=== PATIENT | male | born 1965 | race Caucasian/White ===

== ENCOUNTER 2016-03-28 00:04 | Emergency (ER) | payer OTHER ==
--- NOTE | 2016-03-28 01:01 | ED ---
Lower Extremity Injury HPI - General Chief Complaint: Extremity Injury, Lower Stated Complaint: R Ankle Swelling Time Seen by Provider: 03/28/16 00:31 Source: patient, RN notes reviewed Mode of arrival: ambulatory Limitations: no limitations - History of Present Illness Initial Comments: Patient is a 50-year-old male with chief complaint of right ankle swelling for 1 day. Patient reports that he has history of ankle fracture proximal he 10 years ago and whenever he injured his ankle after that it becomes extremely severe. Patient reports that he has taken Wesley at home today however has not helped with the pain. Patient reports only Dilaudid helps with his pain. Patient reports no specific injury to cause the swelling however he may have twisted it at work yesterday. Patient denies any other related symptoms including peripheral paresthesias. Patient reports the pain seemed to get worse after he decided to soak his foot in hot bath. - Related Data Home Medications Medication Instructions Recorded Confirmed Aspirin EC [Ecotrin] 325 mg PO DAILY 06/01/15 03/28/16 Cholecalciferol [Vitamin D3] 1,000 unit PO DAILY 06/01/15 03/28/16 Multivitamins, Thera [Multivitamin] 1 tab PO DAILY 06/01/15 03/28/16 Previous Rx's Medication Instructions Recorded Aspirin EC [Ecotrin] 325 mg PO DAILY #30 tablet. 06/03/15 Atorvastatin [Lipitor] 80 mg PO HS #30 tab 06/03/15 Fenofibrate [Lofibra] 160 mg PO DAILY #30 tab 06/03/15 Lisinopril [Zestril] 10 mg PO DAILY #30 tab 06/03/15 Metoprolol Tartrate [Lopressor] 25 mg PO BID #60 tab 06/03/15 Nicotine 21Mg/24Hr Patch [Habitrol] 1 patch TRANSDERM DAILY #30 patch 06/03/15 Nitroglycerin Sl Tabs [Nitrostat] 0.4 mg SUBLINGUAL Q5M PRN #25 tab 06/03/15 Prasugrel [Effient] 10 mg PO DAILY #30 tab 06/03/15 amLODIPine [Norvasc] 5 mg PO DAILY #30 tab 06/03/15 HYDROcodone/APAP 5-325MG [[place] 1 tab PO Q6HR PRN #12 tab 03/28/16 5-325] Allergies Allergy/AdvReac Type Severity Reaction Status Date / Time morphine Allergy Nausea & Verified 03/28/16 00:25 Vomiting Review of Systems ROS Statement: Those systems with pertinent positive or pertinent negative responses have been documented in the HPI. ROS Other: All systems not noted in ROS Statement are negative. Past Medical History Past Medical History: Hyperlipidemia History of Any Multi-Drug Resistant Organisms: None Reported Past Surgical History: Orthopedic Surgery Past Psychological History: No Psychological Hx Reported Smoking Status: Current every day smoker Past Alcohol Use History: None Reported Past Drug Use History: None Reported General Exam - General Exam Comments Initial Comments: is a well-appearing 48-year-old male. Limitations: no limitations General appearance: alert, in no apparent distress Head exam: Present: atraumatic, normocephalic, normal inspection Eye exam: Present: normal appearance, PERRL, EOMI. Absent: scleral icterus, conjunctival injection, periorbital swelling ENT exam: Present: normal exam, mucous membranes moist Neck exam: Present: normal inspection. Absent: tenderness, meningismus, lymphadenopathy Respiratory exam: Present: normal lung sounds bilaterally. Absent: respiratory distress, wheezes, rales, rhonchi, stridor Cardiovascular Exam: Present: regular rate, normal rhythm, normal heart sounds. Absent: systolic murmur, diastolic murmur, rubs, gallop, clicks GI/Abdominal exam: Present: soft, normal bowel sounds. Absent: distended, tenderness, guarding, rebound, rigid Extremities exam: Present: normal inspection, full ROM, normal capillary refill. Absent: tenderness, pedal edema, joint swelling, calf tenderness Right Ankle exam: Present: tenderness (No significant tenderness over the entire ankle.), swelling (Diffuse swelling. There is evidence of more severe swelling over the lateral malleolus.). Absent: normal inspection, full ROM Back exam: Present: normal inspection Neurological exam: Present: alert, oriented X3, CN II-XII intact Psychiatric exam: Present: normal affect, normal mood Skin exam: Present: warm, dry, intact, normal color. Absent: rash Course Vital Signs 03/28/16 03/28/16 03/28/16 00:21 02:09 04:11 Temperature 99 F 97.5 F L 98.7 F Pulse Rate 87 78 88 Respiratory 20 18 18 Rate Blood Pressure 148/65 108/64 144/85 O2 Sat by Pulse 98 98 97 Oximetry Medical Decision Making - Medical Decision Making Patient is a 50 year old male with right ankle swelling for 2 days. 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 Patient can not remember specific injury. Patient reports pain was worse after soaking it in warm bath. Patient has significant swelling Xray shows no fracture. PAtients ankle is not warm or erythematous. Patient will be given ankle shannon wrap and stirrup splint. Patient given script for crutches. Return parameters discussed. Follow up with PCP or ortho. Patent understands treatment plan and will comply. - Radiology Data Radiology results: report reviewed ankle xray is negative for any acute fracture. Evidence of significant swelling. Disposition Clinical Impression: Right ankle sprain Disposition: HOME SELF-CARE Condition: Good Instructions: Ankle Sprain (ED) Additional Instructions: instructed to follow-up with orthopedic physician. Return to the EC if any alarming signs symptoms occur. Rest, ice, and elevate extremity. Prescriptions: HYDROcodone/APAP 5-325MG [[place] 5-325] 1 tab PO Q6HR PRN #12 tab PRN Reason: Pain Referrals: López Clayton MD [Primary Care Provider] - 1-2 days Roberto Nance MD [STAFF PHYSICIAN] - 1-2 days Time of Disposition: 03:48
[2016-03-28] MEDS ORDERED: HYDROmorphone 1 MG/ML 1 ML SYRINGE IM STA (01:53)
[2016-03-28] MEDS ORDERED: KETOROLAC 30 MG/ML 1 ML VIAL IM STA (01:53)
[2016-03-28 02:11] VITALS: RESP 18
--- NOTE | 2016-03-28 03:51 | XR ---
EXAMINATION TYPE: XR foot limited RT DATE OF EXAM: 03/28/2016 1:35 AM CLINICAL HISTORY: History of pain, fracture of right foot and ankle 15 years ago. TECHNIQUE: 2 radiographs of right foot were obtained.. COMPARISON: Right ankle 03/28/2016. FINDINGS: There is no acute fracture/dislocation evident. Mild to moderate degenerative changes are present in the right foot especially involving right first metatarsophalangeal joint with cystic dege nerative changes in the head of the right first metatarsal bone.. Slightly prominent plantar calcanea l spur is noted. Mild soft tissue swelling. IMPRESSION: There is no acute fracture or dislocation. Degenerative changes. Soft tissue swelling. ICD 10 NO FRACTURE, INITIAL EVALUATION
--- NOTE | 2016-03-28 03:55 | XR ---
EXAMINATION TYPE: XR ankle complete RT DATE OF EXAM: 03/28/2016 1:35 AM COMPARISON: Right foot 03/28/2016 HISTORY: Pain TECHNIQUE: Frontal, lateral and oblique images of the right ankle are obtained. COMPARISON: None. FINDINGS: There is evidence of small bone densities in the inferior aspect of lateral and medial malleoli and a re most likely related to old fractures. No definite acute fracture or dislocation is noted in the ri ght ankle. Soft tissue swelling is noted. Small plantar calcaneal spur is noted. There is small lucency in the articular surface of distal right tibia and possibility of small old fr acture changes cannot be excluded. Underlying small avascular necrosis changes of articular surface o f distal right tibia cannot be excluded. IMPRESSION: There is no acute fracture or dislocation seen. Old fractures in the medial and lateral malleoli. Soft tissue swelling. Old fracture changes in the articular surface of distal right tibia with possible small area of avasc ular necrosis.
[2016-03-28 04:12] VITALS: BP 144/85; PULSE 88; TEMP 98.7
== END 2016-03-28 04:12 | disposition home or self-care (01) ==
LOC: EC 00:04
DX: S93.401A Sprain of unspecified ligament of right ankle, initial encounter (principal); X58.XXXA Exposure to other specified factors, initial encounter; Z79.82 Long term (current) use of aspirin; E78.5 Hyperlipidemia, unspecified; F17.200 Nicotine dependence, unspecified, uncomplicated; Z79.899 Other long term (current) drug therapy; Z88.5 Allergy status to narcotic agent; Z87.81 Personal history of (healed) traumatic fracture
CPT/HCPCS: 73610; 73620; 99283; 96372 ×2; J1885; J1170

== ENCOUNTER 2019-02-13 13:52 | Emergency (ER) | payer BC ==
[2019-02-13 14:09] VITALS: BP 155/77; PULSE 70; RESP 18; TEMP 98
[2019-02-13] MEDS ORDERED: CEPHALEXIN 500MG STARTER PACK 4 CAP BTL PO STA (14:16)
--- NOTE | 2019-02-13 14:17 | ED ---
Skin/Abscess/FB HPI - General Chief complaint: Skin/Abscess/Foreign Body Stated complaint: MRSA Time Seen by Provider: 02/13/19 14:10 Source: patient Mode of arrival: ambulatory Limitations: no limitations - History of Present Illness Initial comments: 53-year-old male with no known history of MRSA presents today for chief complaint of 4 lesions one on the posterior right sided neck one on the chin one on the anterior right aspect of knee one on the anterior aspect of the left jessica. Patient states that he has had these lesions shannon be bigger more red. He was told without testing by his primary care provider that this was MRSA. Patient denies any known history. Patient states that he has been on antibiotics for 10 days, bactrim. He was told once he is antibiotics for now he will not be a little bit more dilated come to the emergency department for refill. Patient states if significantly improved he states he does not come to get worse and presents to the ER for evaluation. Patient denies any fever or flulike symptoms, denies any increasing pain, redness or swelling. Upon arrival patient appears well,nontoxic and is afebrile. - Related Data Home Medications Medication Instructions Recorded Confirmed Aspirin EC [Ecotrin] 325 mg PO DAILY 06/01/15 03/28/16 Cholecalciferol [Vitamin D3 (25 1,000 unit PO DAILY 06/01/15 03/28/16 Mcg = 1000 Iu)] Multivitamins, Thera [Multivitamin 1 tab PO DAILY 06/01/15 03/28/16 (formulary)] Previous Rx's Medication Instructions Recorded Aspirin EC [Ecotrin] 325 mg PO DAILY #30 06/03/15 Atorvastatin [Lipitor] 80 mg PO HS #30 tab 06/03/15 Fenofibrate [Lofibra] 160 mg PO DAILY #30 tab 06/03/15 Lisinopril [Zestril] 10 mg PO DAILY #30 tab 06/03/15 Metoprolol Tartrate [Lopressor] 25 mg PO BID #60 tab 06/03/15 Nicotine 21Mg/24Hr Patch [Habitrol] 1 patch TRANSDERM DAILY #30 patch 06/03/15 Nitroglycerin Sl Tabs [Nitrostat] 0.4 mg SUBLINGUAL Q5M PRN #25 tab 06/03/15 Prasugrel [Effient] 10 mg PO DAILY #30 tab 06/03/15 amLODIPine [Norvasc] 5 mg PO DAILY #30 tab 06/03/15 HYDROcodone/APAP 5-325MG [[place] 1 tab PO Q6HR PRN #12 tab 03/28/16 5-325] Clindamycin HCl [Cleocin] 300 mg PO Q8H 7 Days #21 cap 02/13/19 Allergies Allergy/AdvReac Type Severity Reaction Status Date / Time morphine Allergy Nausea & Verified 03/28/16 00:25 Vomiting Review of Systems ROS Statement: Those systems with pertinent positive or pertinent negative responses have been documented in the HPI. ROS Other: All systems not noted in ROS Statement are negative. Past Medical History Past Medical History: Hyperlipidemia History of Any Multi-Drug Resistant Organisms: MRSA Date of last positivie culture/infection: 2018 MDRO Source:: Arms, legs, and head Past Surgical History: Orthopedic Surgery Past Psychological History: No Psychological Hx Reported Smoking Status: Current every day smoker Past Alcohol Use History: Occasional Past Drug Use History: Marijuana General Exam - General Exam Comments Initial Comments: General: The patient is awake and alert, in no distress, and does not appear acutely ill. Eye: +3 mm pupils are equal, round and reactive to light, extra-ocular movements are intact. No nystagmus. There is normal conjunctiva bilaterally. No signs of icterus. Ears, nose, mouth and throat: There are moist mucous membranes and no oral lesions. Neck: The neck is supple, there is no tenderness or JVD. Musculoskeletal: Normal ROM, no tenderness. Strength 5/5. Sensation intact. Radial pulses equal bilaterally 2+. Neurological: A&O x 3. CN II-XII intact grossly, There are no obvious motor or sensory deficits. Coordination appears grossly intact. Speech is normal. Skin: Skin is warm and dry and no rashes. there a < 1 cm lesion red near hair follicle of posterior neck, no significant redness, no fluctuance. There are similar lesion on chin this has near no redness similar in retrospect to the one found on the neck. Patient has additional 1 anterior right knee again this doesn't demonstrate redness there is some scabbing. There is a slightly red lesion on the anterior jessica no fluctuanceand tenderness to palpation this is approximately 2 cm circular no active drainage or warmth to palpation. No lower extremity edema Psychiatric: Cooperative, appropriate mood & affect, normal judgment. Limitations: no limitations Course Vital Signs 02/13/19 14:05 Temperature 98.0 F Pulse Rate 70 Respiratory 18 Rate Blood Pressure 155/77 O2 Sat by Pulse 98 Oximetry Medical Decision Making - Medical Decision Making 53-year-old male presenting today for chief complaint of possible MRSA lesions. Patient states he was told by his primary care provider had MRSA he was on Bactrim. He was told to come to emergency department when Anaprox ran out. Patient states he has had COMPLETE resolution of lesions. There is no evidence of physical examination of abscess only Y of the lesions was erythematous. Patient was given a prescription for clindamycin and told to follow-up with primary care provider otherwise patient appears nontoxic afebrile no active drainage, this examination findings are more consistent with folliculitis, with possible previous infection. Patient case discussed with Mariana who is agreeable with care plan and discharge. Disposition Clinical Impression: Folliculitis Disposition: HOME SELF-CARE Condition: Good Instructions (If sedation given, give patient instructions): Folliculitis (ED) Additional Instructions: Please use medication as discussed. Please follow-up with family doctor in the next 2 days. Please return to emergency room if the symptoms increase or worsen or for any other concerns. Prescriptions: Clindamycin HCl [Cleocin] 300 mg PO Q8H 7 Days #21 cap Is patient prescribed a controlled substance at d/c from ED?: No Referrals: López Clayton MD [Primary Care Provider] - 1-2 days Time of Disposition: 14:17
== END 2019-02-13 14:43 | disposition home or self-care (01) ==
LOC: EC 13:52
DX: L73.9 Follicular disorder, unspecified (principal); F17.200 Nicotine dependence, unspecified, uncomplicated; Z88.5 Allergy status to narcotic agent; Z86.14 Personal history of Methicillin resistant Staphylococcus aureus infection
CPT/HCPCS: 99283

== ENCOUNTER → 2020-07-28 | Outpatient (CLI) | payer OTHER ==
--- NOTE | 2020-07-28 09:13 | US ---
EXAMINATION TYPE: US liver DATE OF EXAM: 07/28/2020 COMPARISON: NONE CLINICAL HISTORY: 54-year-old male R94.5 abn liver function. Abnormal labs. TECHNIQUE: Multiple sonographic images of the right upper quadrant are obtained. FINDINGS: EXAM MEASUREMENTS: Liver Length: 20.4 cm Gallbladder Wall: 0.2 cm CBD: unable to discern Right Kidney: 11.4 x 4.6 x 5.5 cm Band Builder notes:large habitus and bowel gas limits exam Pancreas: limited views. Only small portions of the pancreatic body are seen. Liver: very difficult to penetrate, enlarged. This secondarily limits assessment for focal lesions. Gallbladder: limited detail visualization. No bo distention, wall thickening, pericholecystic flu id, or shadowing calculi. Evidence for sonographic Nance's sign: no CBD: unable to discern due to reasons stated above Right Kidney: limited assessment, no obvious hydronephrosis. IMPRESSION: 1. Very limited exam due to large patient body habitus. 2. Hepatomegaly (20.4 cm) with severe hepatic steatosis. This secondarily limits assessment for focal lesions. 3. No gallstones or inflammatory changes of the gallbladder. 4. Unable to visualize the bile duct or most of the pancreas.
== END | disposition home or self-care (01) ==
LOC: RADUSWWP 06:55
PROVIDERS: ATTEND Internal Medicine
DX: K76.0 Fatty (change of) liver, not elsewhere classified (principal)
CPT/HCPCS: 76705

== ENCOUNTER → 2020-09-05 | Outpatient (CLI) | payer OTHER | END | disposition home or self-care (01) | LOC: RADMRIMAIN 07:52 | PROVIDERS: ATTEND Internal Medicine Gastroenterology | DX: Z53.9 Procedure and treatment not carried out, unspecified reason (principal) ==

== ENCOUNTER → 2020-09-05 | Outpatient (CLI) | payer OTHER ==
[2020-09-05 15:04] LABS: INR 0.88 (0.90-1.11); Prothrombin Time 9.7 sec (9.9-11.9)
[2020-09-05 15:14] LABS: Basophils # (A) 0.06 X 10*3/uL (0.00-0.10); Basophils % (A) 0.8 %; Eosinophils # (A) 0.23 X 10*3/uL (0.04-0.35); Eosinophils % (A) 3.1 %; HCT 39.7 % (39.6-50.0); HGB 12.8 g/dL (13.0-17.0); Lymphocytes # (A) 2.47 X 10*3/uL (0.90-5.00); MCH 29.6 pg (27.0-32.0); MCHC 32.2 g/dL (32.0-37.0); MCV 91.9 fL (80.0-97.0); Mean Platelet Volume 10.2 fL (9.5-12.2); Monocytes # (A) 0.77 X 10*3/uL (0.20-1.00); Monocytes % (A) 10.3 %; Platelet Count 272 X 10*3/uL (140-440); RBC 4.32 X 10*6/uL (4.40-5.60); RDW 13.6 % (11.5-14.5); WBC 7.49 X 10*3/uL (4.50-10.00)
[2020-09-05 21:56] LABS: Protein, Total 6.5 g/dL (6.2-8.2)
[2020-09-05 22:16] LABS: % Iron Saturation 24.16 (15.00-50.00); African American GFR (CKD) 77.3 (60.0-200.0); Albumin 4.4 g/dL (3.80-4.90); Albumin/Globulin Ratio 2.1 (1.60-3.17); Anion Gap 12.7 mmol/L (4.00-12.00); BUN/Creat Ratio 17.5 Ratio (12.00-20.00); Calcium 9.3 mg/dL (8.7-10.3); Carbon Dioxide 21.3 mmol/L (21.6-31.8); Ferritin 483.4 ng/mL (22.0-322.0); Globulin 2.1 g/dL (1.6-3.3); Non-African American GFR(CKD) 66.7 (60.0-200.0); Potassium 4.3 mmol/L (3.5-5.5); Total Bilirubin 0.3 mg/dL (0.3-1.2); Total Protein 6.5 g/dL (6.2-8.2)
[2020-09-05 22:54] LABS: Alpha Fetoprotein, Tumor Mkr <2.5 ng/mL (0.0-7.9)
[2020-09-06 01:08] LABS: Hepatitis A Antibody IgM Non-Reactive (Non-Reactive); Hepatitis B Core IgM Non-Reactive (Non-Reactive); Hepatitis B Surface Antigen Non-Reactive (Non-Reactive); Hepatitis C IgG Antibody Non-Reactive (Non-Reactive)
== END | disposition home or self-care (01) ==
LOC: LABWHC1 08:39
PROVIDERS: ATTEND Nurse Practitioner
DX: R74.01 Elevation of levels of liver transaminase levels (principal)
CPT/HCPCS: 36415; 80053; 80074; 82103; 82105; 82390; 82728; 83516; 83540; 83550; 84165; 85025; 85610; 86038; 86376

== ENCOUNTER → 2020-09-11 | Outpatient (CLI) | payer OTHER | END | disposition home or self-care (01) | LOC: LABWHC1 08:41 | PROVIDERS: ATTEND Nurse Practitioner | DX: E88.01 Alpha-1-antitrypsin deficiency (principal) | CPT/HCPCS: 36415; 82103; 82104 ==

== ENCOUNTER 2021-01-20 10:27 | Emergency (ER) | payer OTHER ==
[2021-01-20 13:30] VITALS: PULSE 78; RESP 20; TEMP 98.4
--- NOTE | 2021-01-20 14:44 | US ---
EXAMINATION TYPE: US venous doppler duplex LE LT DATE OF EXAM: 01/20/2021 2:26 PM COMPARISON: NONE CLINICAL HISTORY: sent in with order, pain and swelling. Pt states left leg pain SIDE PERFORMED: Left TECHNIQUE: The lower extremity deep venous system is examined utilizing real time linear array sonog alexsander with graded compression, doppler sonography and color-flow sonography. VESSELS IMAGED: Common Femoral Vein Deep Femoral Vein Greater Saphenous Vein * Femoral Vein Popliteal Vein Small Saphenous Vein * Proximal Calf Veins (* superficial vessels) Left Leg: Negative for DVT, probable Juan's cyst left pop fossa= 6.4 x 1.1 x 4.1 cm IMPRESSION: 1. Left lower extremity ultrasound negative for deep venous thrombosis. 2. Left popliteal cyst
[2021-01-20] MEDS ORDERED: IBUPROFEN 600 MG TAB PO STA (15:21)
--- NOTE | 2021-01-20 15:21 | ED ---
General Adult HPI - General Chief complaint: Extremity Problem,Nontraumatic Stated complaint: poss blood clot lt leg Time Seen by Provider: 01/20/21 14:49 Source: patient, RN notes reviewed Mode of arrival: wheelchair Limitations: no limitations - History of Present Illness Initial comments: 55-year-old male presents to the emergency department for evaluation of left lower extremity edema. States swelling began on the and is accompanied by pain behind his knee and a firmness in his calf. Patient denies any new or recent trauma, but states he fell 3 stories several years ago and has multiple pieces of hardware in the left leg. He is concerned about a blood clot. States he has not taken anything for pain prior to arrival. Reports pain is worse with activity. Was seen by his primary care provider who is making arrangements for him to see an orthopedist. Patient denies fever, chills, headache, chest pain, worsening shortness of breath, difficulty breathing, back pain, or hip pain. - Related Data Home Medications Medication Instructions Recorded Confirmed Aspirin EC [Ecotrin] 325 mg PO DAILY 06/01/15 03/28/16 Cholecalciferol [Vitamin D3 (25 1,000 unit PO DAILY 06/01/15 03/28/16 Mcg = 1000 Iu)] Multivitamins, Thera [Multivitamin 1 tab PO DAILY 06/01/15 03/28/16 (formulary)] Previous Rx's Medication Instructions Recorded Aspirin EC [Ecotrin] 325 mg PO DAILY #30 tablet. 06/03/15 Atorvastatin [Lipitor] 80 mg PO HS #30 tab 06/03/15 Fenofibrate [Lofibra] 160 mg PO DAILY #30 tab 06/03/15 Metoprolol Tartrate [Lopressor] 25 mg PO BID #60 tab 06/03/15 Nicotine 21Mg/24Hr Patch [Habitrol] 1 patch TRANSDERM DAILY #30 patch 06/03/15 Nitroglycerin Sl Tabs [Nitrostat] 0.4 mg SUBLINGUAL Q5M PRN #25 tab 06/03/15 Prasugrel [Effient] 10 mg PO DAILY #30 tab 06/03/15 amLODIPine [Norvasc] 5 mg PO DAILY #30 tab 06/03/15 lisinopriL [Zestril] 10 mg PO DAILY #30 tab 06/03/15 HYDROcodone/APAP 5-325MG [[place] 1 tab PO Q6HR PRN #12 tab 03/28/16 5-325] clindamycin HCL [Cleocin] 300 mg PO Q8H 7 Days #21 cap 02/13/19 Ibuprofen [Motrin] 600 mg PO Q8HR PRN #30 tab 01/20/21 Allergies Allergy/AdvReac Type Severity Reaction Status Date / Time morphine Allergy Nausea & Verified 01/20/21 13:26 Vomiting Review of Systems ROS Statement: Those systems with pertinent positive or pertinent negative responses have been documented in the HPI. ROS Other: All systems not noted in ROS Statement are negative. Past Medical History Past Medical History: Hyperlipidemia History of Any Multi-Drug Resistant Organisms: MRSA Date of last positivie culture/infection: 2018 MDRO Source:: Arms, legs, and head Past Surgical History: Orthopedic Surgery Past Psychological History: No Psychological Hx Reported Smoking Status: Current every day smoker Past Alcohol Use History: None Reported, Occasional Past Drug Use History: None Reported, Marijuana General Exam Limitations: no limitations General appearance: alert, in no apparent distress, other (Well-developed, well- nourished male in no acute distress. Initial temperature 98.4, pulse 78, respirations 20, blood pressure 149/78, pulse ox 99% on room air) ENT exam: Present: normal exam, normal oropharynx, mucous membranes moist Respiratory exam: Present: normal lung sounds bilaterally. Absent: respiratory distress, wheezes, rales, rhonchi, stridor Cardiovascular Exam: Present: regular rate, normal rhythm, normal heart sounds. Absent: systolic murmur, diastolic murmur, rubs, gallop, clicks GI/Abdominal exam: Present: soft, normal bowel sounds. Absent: distended, tenderness, guarding, rebound, rigid Left Knee exam: Present: tenderness (Popliteal tenderness upon palpation), swelling (Mild diffuse swelling). Absent: ecchymosis, deformity, erythema Lower Leg exam: Present: tenderness, swelling (Calf is mildly swollen, but not erythematous or warm to touch). Absent: erythema, Homans' sign Foot/Toe exam: Present: normal inspection Neurovascular tendon exam: Present: no vascular compromise (+2 pedal and posttibial pulses). Absent: pulse deficit, abnormal cap refill, motor deficit, sensory deficit Right Knee exam: Present: normal inspection, full ROM. Absent: tenderness, swelling Lower Leg exam: Present: normal inspection, full ROM. Absent: tenderness, swelling Foot/Toe exam: Present: normal inspection, full ROM. Absent: tenderness, swelling Neurovascular tendon exam: Present: no vascular compromise. Absent: pulse deficit, abnormal cap refill, motor deficit, sensory deficit Neurological exam: Present: alert, oriented X3, CN II-XII intact Skin exam: Present: warm, dry, intact, normal color. Absent: rash Course Vital Signs 01/20/21 01/20/21 13:26 15:41 Temperature 98.4 F Pulse Rate 78 78 Respiratory 20 Rate Blood Pressure 149/78 151/80 O2 Sat by Pulse 99 97 Oximetry Medical Decision Making - Medical Decision Making This is a 55-year-old male with a past medical history of traumatic injury to the left lower extremity resulting in hardware placement, who presents to the emergency department for evaluation of left lower extremity edema. Patient verbalizes concern for DVT. Upon exam, patient complains of knee pain with palpation. Left lower extremity is mildly swollen and firm to touch, no erythema or warmth. +2 pedal and posttibial pulses palpable. Ultrasound of the left lower extremity was obtained and shows no evidence of DVT, however popliteal cyst is visualized. These findings were reviewed with patient. He will be discharged home to follow-up with orthopedics, as well as primary care provider. Patient will be prescribed Motrin for discomfort. Instructed to continue using compression stockings and elevate extremity. Return parameters were discussed in detail. Patient verbalizes understanding and agrees with this plan. This patient's care was reviewed with my attending Dr. Rowe. - Radiology Data Radiology results: report reviewed, image reviewed Venous Doppler ultrasound of the left lower extremity was obtained. Report was reviewed in its entirety. Impression per Dr. Ren his left lower extremity ultrasound negative for deep venous thrombosis. Left popliteal cyst. Disposition Clinical Impression: Synovial cyst of popliteal space [Juan], left knee, Edema of left lower extremity Disposition: HOME SELF-CARE Condition: Stable Instructions (If sedation given, give patient instructions): Bakers Cyst (ED) Additional Instructions: Follow-up with orthopedics as directed. When you call the office, let them know that you were seen in the emergency department and had doppler study (an ultrasound) that showed no DVT (blood clot), but presence of a juan's cyst. At rest, make sure that the leg is elevated. May apply ice. Motrin as needed for pain and inflammation. Continue wearing compression stockings as tolerated. Return to the emergency department with any new, worsening, or concerning symptoms. Prescriptions: Ibuprofen [Motrin] 600 mg PO Q8HR PRN #30 tab PRN Reason: Pain Is patient prescribed a controlled substance at d/c from ED?: No Referrals: López Clayton MD [Primary Care Provider] - 1-2 days Fernando Vance PAC [PHYSICIAN [employer]CTION[employer] ANALYST] - 1-2 days Time of Disposition: 15:27
[2021-01-20] MEDS ORDERED: traMADol 50 MG STARTER PACK 3 TAB BTL PO STA (15:22)
[2021-01-20 15:42] VITALS: BP 151/80
== END 2021-01-20 15:35 | disposition home or self-care (01) ==
LOC: EC 10:27
DX: M71.22 Synovial cyst of popliteal space [Baker], left knee (principal); R60.0 Localized edema; F17.200 Nicotine dependence, unspecified, uncomplicated; Z88.6 Allergy status to analgesic agent; Z79.82 Long term (current) use of aspirin
CPT/HCPCS: 99283

== ENCOUNTER → 2021-03-04 | Outpatient (CLI) | payer OTHER ==
--- NOTE | 2021-03-04 13:33 | MR ---
EXAMINATION TYPE: MR knee LT wo con DATE OF EXAM: 03/04/2021 COMPARISON: Prior MRI left knee November 14, 2015. Left knee x-ray February 02, 2021 HISTORY: Left knee inside pain and swelling for 3 months TECHNIQUE: Multiplanar, multisequence imaging of the left knee is performed without IV contrast. FINDINGS: MEDIAL MENISCUS: Anterior and posterior horns are intact without tear. LATERAL MENISCUS: Anterior and posterior horns are intact without tear. CRUCIATE LIGAMENTS: The anterior and posterior cruciate ligaments are intact and unremarkable. COLLATERAL LIGAMENTS: The medial collateral ligament and lateral collateral ligament complex are inta ct and unremarkable. EXTENSOR MECHANISM: Visualized quadriceps and patellar tendons are intact. EFFUSION: Small to tiny suprapatellar joint effusion slightly more prominent from prior. POPLITEAL CYST: New moderate size multiseptated popliteal/em cyst measuring 6.4 cm long axis dime nsion sagittal image 30 with some adjacent ill-defined fluid extending posteriorly axial image 25 for reference. TRICOMPARTMENT SPACES: Mild tricompartment joint space loss and spurring redemonstrated CARTILAGE: Tricompartment articular cartilage fairly well preserved. BONE MARROW SIGNAL: Stable subcentimeter lesion in the distal medial femoral condyle coronal image 15 favoring benign enchondroma. New heterogeneous increased T2 signal involving the lateral aspect of the distal lateral femoral cond yle over roughly 3.0 x 1.5 cm area of coronal image 21. No increased T2 signal in the medial aspect o f the patella. No new tear of the medial retinaculum noted. OTHER: No additional significant abnormality is appreciated. IMPRESSION: 1. New focus of osseous contusion and/or abnormal bone marrow signal intensity in the posterior media l aspect of the distal medial femoral condyle. Correlate for history of recent patellar dislocation i njury with subsequent spontaneous reduction. 2. New moderate-sized leaking multi septated popliteal cyst. 3. Stable mild tricompartment degenerative changes.
== END | disposition home or self-care (01) ==
LOC: RADMRIMAIN 12:39
PROVIDERS: ATTEND Orthopaedic Surgery
DX: M71.22 Synovial cyst of popliteal space [Baker], left knee (principal); M25.562 Pain in left knee

== ENCOUNTER → 2021-07-22 | Outpatient (CLI) | payer OTHER ==
--- NOTE | 2021-07-22 08:52 | XR ---
EXAMINATION TYPE: XR chest 2V DATE OF EXAM: 07/22/2021 COMPARISON: 06/01/2015 TECHNIQUE: PA and lateral views submitted. HISTORY: Shortness of breath FINDINGS: The lungs are clear and there is no pneumothorax, pleural effusion, or focal pneumonia. Heart size normal. No overt failure. Biapical pleural thickening. IMPRESSION: 1. No acute process.
[2021-07-22 14:39] LABS: Basophils # (A) 0.05 X 10*3/uL (0.00-0.10); Basophils % (A) 0.5 %; Eosinophils # (A) 0.18 X 10*3/uL (0.04-0.35); Eosinophils % (A) 1.9 %; HCT 40.7 % (39.6-50.0); HGB 13.2 g/dL (13.0-17.0); Immature Grans, Automated 0.8 %; Lymphocytes # (A) 3.02 X 10*3/uL (0.90-5.00); Lymphocytes % (A) 31.3 %; MCH 29.1 pg (27.0-32.0); MCHC 32.4 g/dL (32.0-37.0); MCV 89.6 fL (80.0-97.0); Mean Platelet Volume 10.2 fL (9.5-12.2); Monocytes % (A) 6.2 %; NRBC Per 100 WBC 0 /100 WBCS (0.0-0.0); Neutrophils # (A) 5.73 X 10*3/uL (1.80-7.70); Neutrophils % (A) 59.3 %; Platelet Count 320 X 10*3/uL (140-440); RBC 4.54 X 10*6/uL (4.40-5.60); RDW 13.9 % (11.5-14.5); WBC 9.66 X 10*3/uL (4.50-10.00)
[2021-07-22 15:58] LABS: African American GFR (CKD) 67.7 (60.0-200.0); Albumin 4.5 g/dL (3.8-4.9); Albumin/Globulin Ratio 1.7 (1.60-3.17); Anion Gap 13.3 mmol/L (10.00-18.00); BUN/Creat Ratio 14.03 Ratio (12.00-20.00); Blood Urea Nitrogen 18.8 mg/dL (9.0-27.0); Calcium 9.7 mg/dL (8.7-10.3); Globulin 2.6 g/dL (1.6-3.3); HDL Cholesterol 25.9 mg/dL (40.00-60.00); Non-African American GFR(CKD) 58.4 (60.0-200.0); Potassium 4.1 mmol/L (3.5-5.5); Prostate Specific Antigen 0.4 ng/mL (0.00-3.50); T4, Free (Free Thyroxine) 1.12 ng/dL (0.800-1.800); Total Bilirubin 0.4 mg/dL (0.30-1.20); Total Protein 7.1 g/dL (6.2-8.2)
[2021-07-22 16:26] LABS: Chol/HDL Ratio 8.69 Ratio
== END | disposition home or self-care (01) ==
LOC: RADXRMAIN 08:10
PROVIDERS: ATTEND Family Medicine
DX: Z00.00 Encounter for general adult medical examination without abnormal findings (principal); Z11.59 Encounter for screening for other viral diseases; Z12.5 Encounter for screening for malignant neoplasm of prostate; J44.9 Chronic obstructive pulmonary disease, unspecified; E78.5 Hyperlipidemia, unspecified
CPT/HCPCS: 71046; 80053; 80061; 83036; 83721; 84153; 84439; 84443; 85025; 86803

== ENCOUNTER 2021-09-02 09:39 | Day surgery (SDC) | payer OTHER ==
[2021-08-28 12:56] VITALS: BMI 38.7
[~2021-09-02 09:39] MED LIST: LACTATED RINGERS 1,000 ML IV SCH
[2021-09-02 10:41] VITALS: TEMP 97.3
[2021-09-02] MEDS ORDERED: PROPOFOL 10 MG/ML 20 ML VIAL IV ONE (11:48)
[2021-09-02] MEDS ORDERED: KETAMINE 10 MG/ML 20 ML VIAL ONE (11:48)
--- NOTE | 2021-09-02 12:09 | P.PCN ---
Date of Procedure: 09/02/21 Procedure(s) Performed: BRIEF HISTORY: Patient is a 56-year-old pleasant white male scheduled for an elective colonoscopy as a part of screening for colorectal neoplasia. PROCEDURE PERFORMED: Colonoscopy. With snare polypectomy PREOPERATIVE DIAGNOSIS: Screening for colon cancer. IV sedation per Anesthesia. PROCEDURE: After informed consent was obtained, the patient, was brought into the endoscopy unit. IV sedation was administered by Anesthesia under continuous monitoring. Digital rectal examination was normal. Initially the Olympus CF-160 flexible video colonoscope was then inserted in the rectum, gradually advanced into the cecum without any difficulty. Careful examination was performed as the scope was gradually being withdrawn. Ileocecal valve and the appendiceal orifice were visualized and appeared normal. Prep was fair. In the base of the cecum there was a 5 mm and 1 cm polyp removed by snare polypectomy. Mucosa of the cecum, ascending colon, appeared normal. In the transverse colon there was a 5 m polyp removed by snare polypectomy. Rest of the transverse colon, descending colon, appeared normal. In the sigmoid colon there was a 3 mm, 5 mm and 1.5 cm polyp that was removed by snare polypectomy. Rest of the sigmoid colon, and rectum appeared normal. Retroflexion was performed in the rectum and no lesions were seen. The patient tolerated the procedure well. IMPRESSION: 5 mm and 1 cm cecal polyp status post polypectomy 5 mm transverse colon polyp status post polypectomy 5 mm, 1.5 cm and 3 mm sigmoid; polyp status post polypectomy RECOMMENDATIONS: Findings of this examination were discussed with the patient well as his family. He was advised to follow with the biopsy results and if the biopsy reveals adenoma have a repeat colonoscopy in 3 years
[2021-09-02] MEDS ORDERED: IV FLUID CONTINUATION 600 ML IV ONE (12:11)
[2021-09-02 12:28] VITALS: BP 128/88; PULSE 80; RESP 18
== END 2021-09-02 12:43 | disposition home or self-care (01) ==
LOC: ORWHC2ENDO 09:39
PROVIDERS: ATTEND Internal Medicine Gastroenterology
DX: Z12.11 Encounter for screening for malignant neoplasm of colon (principal); D12.0 Benign neoplasm of cecum; D12.5 Benign neoplasm of sigmoid colon; D12.3 Benign neoplasm of transverse colon; J44.9 Chronic obstructive pulmonary disease, unspecified; M19.90 Unspecified osteoarthritis, unspecified site; K76.9 Liver disease, unspecified; Z97.2 Presence of dental prosthetic device (complete) (partial); Z79.891 Long term (current) use of opiate analgesic; Z79.51 Long term (current) use of inhaled steroids; Z79.82 Long term (current) use of aspirin; Z79.899 Other long term (current) drug therapy; Z88.5 Allergy status to narcotic agent
CPT/HCPCS: 88305; 45385; J2704

== ENCOUNTER → 2021-12-03 | Outpatient (CLI) | payer OTHER ==
[2021-12-03 15:00] LABS: Basophils # (A) 0.08 X 10*3/uL (0.00-0.10); Basophils % (A) 0.7 %; Eosinophils # (A) 0.23 X 10*3/uL (0.04-0.35); HCT 42.6 % (39.6-50.0); HGB 13.7 g/dL (13.0-17.0); Immature Grans, Automated 0.9 %; Lymphocytes # (A) 3.96 X 10*3/uL (0.90-5.00); Lymphocytes % (A) 34.2 %; MCH 29.5 pg (27.0-32.0); MCHC 32.2 g/dL (32.0-37.0); MCV 91.6 fL (80.0-97.0); Mean Platelet Volume 10.3 fL (9.5-12.2); Monocytes # (A) 1.01 X 10*3/uL (0.20-1.00); Monocytes % (A) 8.7 %; NRBC Per 100 WBC 0 /100 WBCS (0.0-0.0); Neutrophils % (A) 53.5 %; Platelet Count 351 X 10*3/uL (140-440); RBC 4.65 X 10*6/uL (4.40-5.60); RDW 13.8 % (11.5-14.5); WBC 11.59 X 10*3/uL (4.50-10.00)
[2021-12-03 15:38] LABS: African American GFR (CKD) 72.4 (60.0-200.0); Albumin 4.7 g/dL (3.8-4.9); Albumin/Globulin Ratio 2.01 (1.60-3.17); BUN/Creat Ratio 13.73 Ratio (12.00-20.00); Blood Urea Nitrogen 17.3 mg/dL (9.0-27.0); Calcium 9.7 mg/dL (8.7-10.3); Carbon Dioxide 24.8 mmol/L (20.0-27.5); Globulin 2.3 g/dL (1.6-3.3); HDL Cholesterol 29.2 mg/dL (40.00-60.00); Non-African American GFR(CKD) 62.5 (60.0-200.0); Potassium 4.4 mmol/L (3.5-5.5); Total Bilirubin 0.3 mg/dL (0.30-1.20)
[2021-12-03 16:04] LABS: Chol/HDL Ratio 9.18 Ratio
[2021-12-03 19:49] LABS: Microalbumin Creatinine Ratio <30 mg/g Creat (0-30)
== END | disposition home or self-care (01) ==
LOC: LABWHC1 08:31
PROVIDERS: ATTEND Family Medicine
DX: E11.9 Type 2 diabetes mellitus without complications (principal)
CPT/HCPCS: 36415; 80053; 80061; 82043; 82570; 83036; 83721; 85025

== ENCOUNTER 2022-12-19 13:39 | Inpatient (IN) | payer MEDICARE, OTHER ==
[2022-12-19] MEDS ORDERED: NITROGLYCERIN SL TABS 0.4 MG TAB SUBLINGUAL STA (13:47)
[2022-12-19] MEDS ORDERED: HYDROmorphone 0.5 MG/0.5 ML SYRINGE IVP STA (13:49)
[2022-12-19] MEDS ORDERED: ONDANSETRON 4 MG/2 ML VIAL IVP STA (13:50)
[2022-12-19] MEDS ORDERED: SODIUM CHLORIDE 0.9% 500 ML 500 ML IV STA (13:50)
--- NOTE | 2022-12-19 13:54 | ED ---
General Adult HPI - General Chief complaint: Chest Pain Stated complaint: poss heart attack Time Seen by Provider: 12/19/22 13:44 Source: patient Mode of arrival: ambulatory Limitations: no limitations - History of Present Illness Initial comments: Dictation was produced using [employer] dictation software. please excuse any grammatical, word or spelling errors. Chief Complaint: 57-year-old male presents with 1 week of chest pain History of Present Illness: Patient is a 57-year-old male presents emergency Department with almost one week of chest pain. States that it sharp to the substernal area. Nonradiating. Associated with diaphoresis and nausea. Patient history of coronary artery disease he had a stent placed several years ago to the LAD. Patient states the pain is severe he came to the emergency department because his pain is not improving. States that only today started to have some diaphoresis. Denies any numbness distally paresthesias to the arms or legs. The ROS documented in this emergency department record has been reviewed and confirmed by me. Those systems with pertinent positive or negative responses have been documented in the HPI. All other systems are other negative and/or noncontributory. - Related Data Home Medications Medication Instructions Recorded Confirmed Albuterol Sulfate [Proair Hfa] 1 - 2 puff INHALATION RT-Q6H PRN 08/28/21 Budesonide-Formot 160-4.5 Mcg 2 puff INHALATION RT-BID 08/28/21 12/19/22 [Symbicort 160-4.5 Mcg Inhaler] Ezetimibe [Zetia] 10 mg PO HS 08/28/21 12/19/22 Fluticasone Nasal [place] [Flonase 2 spray EA NOSTRIL BID 08/28/21 12/19/22 Nasal [place]] Fenofibrate Nanocrystallized 145 mg PO HS 12/19/22 12/19/22 [Fenofibrate] Metoprolol Succinate [Metoprolol 25 mg PO DAILY 12/19/22 12/19/22 Succinate ER] Previous Rx's Medication Instructions Recorded Atorvastatin [Lipitor] 80 mg PO HS #30 tab 06/03/15 lisinopriL [Zestril] 10 mg PO DAILY #30 tab 06/03/15 Allergies Allergy/AdvReac Type Severity Reaction Status Date / Time morphine Allergy Nausea & Verified 12/19/22 15:15 Vomiting Review of Systems ROS Statement: Those systems with pertinent positive or pertinent negative responses have been documented in the HPI. ROS Other: All systems not noted in ROS Statement are negative. Past Medical History Past Medical History: COPD, Hyperlipidemia, Hypertension, Myocardial Infarction (CO), Osteoarthritis (OA) Additional Past Medical History / Comment(s): " ENLARGED LIVER-FATTY LIVER " Last Myocardial Infarction Date:: 2013 History of Any Multi-Drug Resistant Organisms: MRSA Date of last positivie culture/infection: 2019 MDRO Source:: Arms, legs, and head Past Surgical History: Orthopedic Surgery Past Anesthesia/Blood Transfusion Reactions: No Reported Reaction Past Psychological History: No Psychological Hx Reported Smoking Status: Current every day smoker, Heavy tobacco smoker - Past Family History Mother Family Medical History: No Reported History General Exam - General Exam Comments Initial Comments: PHYSICAL EXAM: General Impression: Alert and oriented x3, acute distress secondary to pain, diaphoretic HEENT: Normocephalic atraumatic, extra-ocular movements intact, pupils equal and reactive to light bilaterally, mucous membranes moist. Cardiovascular: Heart regular rate and rhythm Chest: Able to complete full sentences, no retractions, no tachypnea Abdomen: abdomen soft, non-tender, non-distended, no organomegaly Musculoskeletal: Pulses present and equal in all extremities, no peripheral edema Motor: no focal deficits noted Neurological: CN II-XII grossly intact, no focal motor or sensory deficits noted Skin: Intact with no visualized rashes Psych: Normal affect and mood Limitations: no limitations Course Vital Signs 12/19/22 13:41 Temperature 97 F L Pulse Rate 93 Respiratory 18 Rate Blood Pressure 170/104 O2 Sat by Pulse 97 Oximetry EKG Findings - EKG Comments: EKG Findings:: My EKG interpretation: Ventricular rate 96, sinus rhythm,. 194, QRS 89, QTC of 385. No HI prolongation, no QTC prolongation, questionable hyperacute T waves in precordial leads. EKG compared to 06/01/2015 showing no changes. Overall, this EKG is non-specific Medical Decision Making - Medical Decision Making Was pt. sent in by a medical professional or institution (, PA, PHYSICIAN COMPENSATION ANALYST, urgent care, hospital, or residential...) When possible be specific @ -No Did you speak to anyone other than the patient for history (EMS, parent, family, police, friend...)? What history was obtained from this source @ -No Did you review nursing and triage notes (agree or disagree)? Why? @ -I reviewed and agree with nursing and triage notes Were old charts reviewed (outside hosp., previous admission, EMS record, old EKG, old radiological studies, urgent care reports/EKG's, residential records)? Report findings @ -Cardiac catheter was reviewed from 2016. Shows that patient had LAD stenting at that time Differential Diagnosis (chest pain, altered mental status, abdominal pain women, abdominal pain men, vaginal bleeding, musculoskeletal, weakness, fever, dyspnea, syncope, headache, dizziness, GI bleed, back pain, seizure, CVA, palpatations, mental health)? @ -Differential Chest Pain: Stable Angina, Unstable Angina, STEMI, NSTEMI Aortic Dissection, Pneumothorax, Musculoskeletal, Esophageal Spasm GERD, Cholecystitis, Pancreatitis, Zoster, this is not meant to be an all-inclusive list. EKG interpreted by me (3pts min.). @ -See above X-rays interpreted by me (1pt min.). @ -Two-view chest x-ray is nonacute CT interpreted by me (1pt min.). @ -None done U/S interpreted by me (1pt. min.). @ -None done What testing was considered but not performed or refused? (CT, X-rays, U/S, labs)? Why? @ -None What meds were considered but not given or refused? Why? @ -None Did you discuss the management of the patient with other professionals (professionals i.e. , PA, PHYSICIAN COMPENSATION ANALYST, lab, RT, psych nurse, healthcare social worker, capacity planner, teacher, senior escrow officer, case resolution specialist)? Give summary @ -No Was smoking cessation discussed for >3mins.? @ -No Was critical care preformed (if so, how long)? @ -Yes, 33 minutes Were there social determinants of health that impacted care today? How? (Homelessness, low income, unemployed, alcoholism, drug addiction, transp ortation, low edu. Level, literacy, decrease access to med. care, shelter, rehab)? @ -No Was there de-escalation of care discussed even if they declined (Discuss DNR or withdrawal of care, Hospice)? DNR status @ -No What co-morbidities impacted this encounter? (DM, HTN, Smoking, COPD, CAD, Cancer, CVA, ARF, Chemo, Hep., AIDS, mental health diagnosis, sleep apnea, morbid obesity)? @ -CAD Was patient admitted / discharged? Hospital course, mention meds given and route, prescriptions, significant lab abnormalities, going to OR and other pertinent info. @ -57-year-old male with past medical history of coronary artery disease presents to the emergency department for chest pain. Vital signs upon arrival are within acceptable limits. Patient appeared ill with clinical presentation highly suspicious for acute coronary syndrome versus other life-threatening cardiopulmonary process. EKG is unremarkable. Labs are unremarkable. Troponin is negative. D-dimer is negative. Patient given nitro and analgesics with improvement of his symptoms. He is recommended the patient be admitted to the hospital however he refused would prefer to be discharge. He understands that his workup is not entirely complete and that is high risk given his past medical history. Patient understands and states that he will come back in case his symptoms return. Undiagnosed new problem with uncertain prognosis? @ -No Drug Therapy requiring intensive monitoring for toxicity (Heparin, Nitro, Insulin, Cardizem)? @ -No Were any procedures done? @ -No Diagnosis/symptom? Acute, or Chronic, or Acute on Chronic? Uncomplicated (without systemic symptoms) or Complicated (systemic symptoms)? @ -Chest pain Side effects of treatment? @ -No Exacerbation, Progression, or Severe Exacerbation? @ -No Poses a threat to life or bodily function? How? (Chest pain, [place], CO, pneumonia, PE, COPD, DKA, ARF, appy, cholecystitis, CVA, Diverticulitis, Homicidal, Suicidal, threat to staff... and all critical care pts) @ -yes - Lab Data Result diagrams: 12/19/22 13:52 12/19/22 13:52 Lab Results 12/19/22 12/19/22 12/19/22 Range/Units 13:52 13:52 13:52 WBC 13.9 H (3.8-10.6) k/uL RBC 5.26 (4.30-5.90) m/uL Hgb 15.5 (13.0-17.5) gm/dL Hct 46.3 (39.0-53.0) % MCV 88.2 (80.0-100.0) fL MCH 29.4 (25.0-35.0) pg MCHC 33.4 (31.0-37.0) g/dL RDW 14.1 (11.5-15.5) % Plt Count 424 (150-450) k/uL MPV 7.8 Neutrophils % 49 % Lymphocytes % 41 % Monocytes % 5 % Eosinophils % 2 % Basophils % 0 % Neutrophils # 6.8 (1.3-7.7) k/uL Lymphocytes # 5.6 H (1.0-4.8) k/uL Monocytes # 0.7 (0-1.0) k/uL Eosinophils # 0.3 (0-0.7) k/uL Basophils # 0.1 (0-0.2) k/uL PT 9.6 L (10.0-12.5) sec INR 0.9 (<1.2) APTT 22.3 (22.0-30.0) sec D-Dimer 0.27 (<0.60) mg/L FEU Sodium 140 (137-145) mmol/L Potassium 4.8 (3.5-5.1) mmol/L Chloride 107 (98-107) mmol/L Carbon Dioxide 19 L (22-30) mmol/L Anion Gap 14 mmol/L BUN 15 (9-20) mg/dL Creatinine 1.04 (0.66-1.25) mg/dL Est GFR (CKD-EPI)AfAm >90 (>60 ml/min/1.73 sqM) Est GFR (CKD-EPI)NonAf 79 (>60 ml/min/1.73 sqM) Glucose 132 H (74-99) mg/dL Calcium 10.3 H (8.4-10.2) mg/dL Magnesium 2.0 (1.6-2.3) mg/dL Total Bilirubin 0.5 (0.2-1.3) mg/dL AST 67 H (17-59) U/L ALT 96 H (4-49) U/L Alkaline Phosphatase 91 (38-126) U/L Troponin I (0.000-0.034) ng/mL Total Protein 8.0 (6.3-8.2) g/dL Albumin 4.8 (3.5-5.0) g/dL 12/19/22 Range/Units 13:52 WBC (3.8-10.6) k/uL RBC (4.30-5.90) m/uL Hgb (13.0-17.5) gm/dL Hct (39.0-53.0) % MCV (80.0-100.0) fL MCH (25.0-35.0) pg MCHC (31.0-37.0) g/dL RDW (11.5-15.5) % Plt Count (150-450) k/uL MPV Neutrophils % % Lymphocytes % % Monocytes % % Eosinophils % % Basophils % % Neutrophils # (1.3-7.7) k/uL Lymphocytes # (1.0-4.8) k/uL Monocytes # (0-1.0) k/uL Eosinophils # (0-0.7) k/uL Basophils # (0-0.2) k/uL PT (10.0-12.5) sec INR (<1.2) APTT (22.0-30.0) sec D-Dimer (<0.60) mg/L FEU Sodium (137-145) mmol/L Potassium (3.5-5.1) mmol/L Chloride (98-107) mmol/L Carbon Dioxide (22-30) mmol/L Anion Gap mmol/L BUN (9-20) mg/dL Creatinine (0.66-1.25) mg/dL Est GFR (CKD-EPI)AfAm (>60 ml/min/1.73 sqM) Est GFR (CKD-EPI)NonAf (>60 ml/min/1.73 sqM) Glucose (74-99) mg/dL Calcium (8.4-10.2) mg/dL Magnesium (1.6-2.3) mg/dL Total Bilirubin (0.2-1.3) mg/dL AST (17-59) U/L ALT (4-49) U/L Alkaline Phosphatase (38-126) U/L Troponin I <0.012 (0.000-0.034) ng/mL Total Protein (6.3-8.2) g/dL Albumin (3.5-5.0) g/dL Disposition Clinical Impression: Chest pain Disposition: HOME SELF-CARE Condition: Undetermined Is patient prescribed a controlled substance at d/c from ED?: No Referrals: Kd Eagle MD [Primary Care Provider] - 1-2 days Time of Disposition: 15:37
[2022-12-19 14:03] LABS: Basophils # (A) 0.1 k/uL (0-0.2); Basophils % (A) 0 %; Eosinophils # (A) 0.3 k/uL (0-0.7); Eosinophils % (A) 2 %; HCT 46.3 % (39.0-53.0); HGB 15.5 gm/dL (13.0-17.5); Lymphocytes # (A) 5.6 k/uL (1.0-4.8); Lymphocytes % (A) 41 %; MCH 29.4 pg (25.0-35.0); MCHC 33.4 g/dL (31.0-37.0); MCV 88.2 fL (80.0-100.0); Mean Platelet Volume 7.8; Monocytes # (A) 0.7 k/uL (0-1.0); Monocytes % (A) 5 %; Neutrophils # (A) 6.8 k/uL (1.3-7.7); Neutrophils % (A) 49 %; Platelet Count 424 k/uL (150-450); RBC 5.26 m/uL (4.30-5.90); RDW 14.1 % (11.5-15.5); WBC 13.9 k/uL (3.8-10.6)
[2022-12-19 14:14] LABS: INR 0.9 (<1.2); Partial Thromboplastin Time 22.3 sec (22.0-30.0); Prothrombin Time 9.6 sec (10.0-12.5)
[2022-12-19 14:39] LABS: ALT 96 U/L (4-49); AST 67 U/L (17-59); African American GFR (CKD) >90 (>60 ml/min/1.73 sqM); Albumin 4.8 g/dL (3.5-5.0); Alkaline Phosphatase 91 U/L (38-126); Anion Gap 14 mmol/L; Blood Urea Nitrogen 15 mg/dL (9-20); Calcium 10.3 mg/dL (8.4-10.2); Carbon Dioxide 19 mmol/L (22-30); Chloride 107 mmol/L (98-107); Glucose 132 mg/dL (74-99); Non-African American GFR(CKD) 79 (>60 ml/min/1.73 sqM); Potassium 4.8 mmol/L (3.5-5.1); Sodium 140 mmol/L (137-145); Total Bilirubin 0.5 mg/dL (0.2-1.3)
--- NOTE | 2022-12-19 14:49 | XR ---
EXAMINATION TYPE: XR chest 2V DATE OF EXAM: 12/19/2022 2:18 PM CLINICAL INDICATION:Male, 57 years old with history of Chest Pain. COMPARISON: Chest radiographs from TECHNIQUE: XR chest 2V Frontal and lateral views of the chest. FINDINGS: Lungs/Pleura: Subsegmental atelectasis is noted in the lung bases. No evidence of pleural effusion or pneumothorax. Pulmonary vascularity: Unremarkable. Heart/mediastinum: Cardiomediastinal silhouette is unremarkable. Musculoskeletal: No acute osseous pathology. IMPRESSION: No acute cardiopulmonary disease/process.
[2022-12-19] MEDS ORDERED: ASPIRIN 81 MG PO STA (15:36)
[2022-12-19] MEDS ORDERED: NITROGLYCERIN SL TABS 0.4 MG TAB SUBLINGUAL PRN ×2 (15:55→20:37)
--- NOTE | 2022-12-19 15:55 | ED ---
Medical Decision Making - Medical Decision Making Patient was being given his discharge paperwork but all of a sudden he decided that he would prefer to be admitted. Case discussed with Dr. Velasquez for admission - Lab Data Result diagrams: 12/19/22 13:52 12/19/22 13:52 Lab Results 12/19/22 12/19/22 12/19/22 Range/Units 13:52 13:52 13:52 WBC 13.9 H (3.8-10.6) k/uL RBC 5.26 (4.30-5.90) m/uL Hgb 15.5 (13.0-17.5) gm/dL Hct 46.3 (39.0-53.0) % MCV 88.2 (80.0-100.0) fL MCH 29.4 (25.0-35.0) pg MCHC 33.4 (31.0-37.0) g/dL RDW 14.1 (11.5-15.5) % Plt Count 424 (150-450) k/uL MPV 7.8 Neutrophils % 49 % Lymphocytes % 41 % Monocytes % 5 % Eosinophils % 2 % Basophils % 0 % Neutrophils # 6.8 (1.3-7.7) k/uL Lymphocytes # 5.6 H (1.0-4.8) k/uL Monocytes # 0.7 (0-1.0) k/uL Eosinophils # 0.3 (0-0.7) k/uL Basophils # 0.1 (0-0.2) k/uL PT 9.6 L (10.0-12.5) sec INR 0.9 (<1.2) APTT 22.3 (22.0-30.0) sec D-Dimer 0.27 (<0.60) mg/L FEU Sodium 140 (137-145) mmol/L Potassium 4.8 (3.5-5.1) mmol/L Chloride 107 (98-107) mmol/L Carbon Dioxide 19 L (22-30) mmol/L Anion Gap 14 mmol/L BUN 15 (9-20) mg/dL Creatinine 1.04 (0.66-1.25) mg/dL Est GFR (CKD-EPI)AfAm >90 (>60 ml/min/1.73 sqM) Est GFR (CKD-EPI)NonAf 79 (>60 ml/min/1.73 sqM) Glucose 132 H (74-99) mg/dL Calcium 10.3 H (8.4-10.2) mg/dL Magnesium 2.0 (1.6-2.3) mg/dL Total Bilirubin 0.5 (0.2-1.3) mg/dL AST 67 H (17-59) U/L ALT 96 H (4-49) U/L Alkaline Phosphatase 91 (38-126) U/L Troponin I (0.000-0.034) ng/mL Total Protein 8.0 (6.3-8.2) g/dL Albumin 4.8 (3.5-5.0) g/dL 12/19/22 Range/Units 13:52 WBC (3.8-10.6) k/uL RBC (4.30-5.90) m/uL Hgb (13.0-17.5) gm/dL Hct (39.0-53.0) % MCV (80.0-100.0) fL MCH (25.0-35.0) pg MCHC (31.0-37.0) g/dL RDW (11.5-15.5) % Plt Count (150-450) k/uL MPV Neutrophils % % Lymphocytes % % Monocytes % % Eosinophils % % Basophils % % Neutrophils # (1.3-7.7) k/uL Lymphocytes # (1.0-4.8) k/uL Monocytes # (0-1.0) k/uL Eosinophils # (0-0.7) k/uL Basophils # (0-0.2) k/uL PT (10.0-12.5) sec INR (<1.2) APTT (22.0-30.0) sec D-Dimer (<0.60) mg/L FEU Sodium (137-145) mmol/L Potassium (3.5-5.1) mmol/L Chloride (98-107) mmol/L Carbon Dioxide (22-30) mmol/L Anion Gap mmol/L BUN (9-20) mg/dL Creatinine (0.66-1.25) mg/dL Est GFR (CKD-EPI)AfAm (>60 ml/min/1.73 sqM) Est GFR (CKD-EPI)NonAf (>60 ml/min/1.73 sqM) Glucose (74-99) mg/dL Calcium (8.4-10.2) mg/dL Magnesium (1.6-2.3) mg/dL Total Bilirubin (0.2-1.3) mg/dL AST (17-59) U/L ALT (4-49) U/L Alkaline Phosphatase (38-126) U/L Troponin I <0.012 (0.000-0.034) ng/mL Total Protein (6.3-8.2) g/dL Albumin (3.5-5.0) g/dL Disposition Clinical Impression: Chest pain Disposition: ADMITTED IP TO THIS HOSP Condition: Undetermined Referrals: Kd Eagle MD [Primary Care Provider] - 1-2 days Decision Time: 15:55
[2022-12-19] MEDS ORDERED: oxyCODONE-APAP 10-325MG 1 EACH TAB PO STA (16:50)
[2022-12-19] MEDS ORDERED: LIDOCAINE 1% INJ 10MG/ML (20 ML MDV) ONE (18:48)
[2022-12-19] MEDS ORDERED: VERAPAMIL 2.5 MG/ML 2 ML AMP ONE (18:49)
[2022-12-19] MEDS ORDERED: IV FLUID CONTINUATION 1,000 ML IV ONE (18:52)
[2022-12-19] MEDS ORDERED: fentaNYL (PF) 50 MCG/ML 2 ML AMP ONE (19:02)
[2022-12-19] MEDS ORDERED: HEPARIN SODIUM 1,000 UN/ML (10ML VL) ONE ×3 (19:02→19:40)
--- NOTE | 2022-12-19 19:08 | P.CRDCN ---
History of Present Illness History of present illness: HISTORY OF PRESENTING ILLNESS This is a pleasant 57-year-old with past medical history significant for hypertension, hyperlipidemia, tobacco abuse, COPD, CAD status post PCI of LAD May 2015. Patient presents with chest pain which has been going off and on for the last week however More intense and persistent sepsis morning and therefore presented to emergency department. He had a more significant episode when he came in with a 10 out of 10 pain spell exactly similar to when he had h is stent in May 2015. The pain somewhat subsided however he had a recurrent significant 5 out of 10 chest pain approximately 5 PM. Currently he states he is having 2 out of 10 chest pain. Blood work shows white blood cell count 13.9, d-dimer 0.27, creatinine 1.0, troponin 0.012, 1.3. He did have repeat EKG which shows sinus rhythm, normal axis, minimal T-wave inversions V1 through V4. He do es smoke 8 packs a day occasional marijuana no illicit drugs. Denies any family history of CAD. REVIEW OF SYSTEMS At the time of my exam: CONSTITUTIONAL: Denies fever or chills. CARDIOVASCULAR: +chest pain, +shortness of breath, no orthopnea, PND or palpitations. RESPIRATORY: Denies cough. GASTROINTESTINAL: Denies abdominal pain, diarrhea, constipation, nausea or vomiting. MUSCULOSKELETAL: Denies myalgias. NEUROLOGIC: Denies numbness, tingling or weakness. ENDOCRINE: Denies fatigue, weight change, polydipsia or polyurina. GENITOURINARY: Denies burning, hematuria or urgency with micturation. HEMATOLOGIC: Denies history of anemia or bleeding. PHYSICAL EXAMINATION Vital signs reviewed. CONSTITUTIONAL: No apparent distress. HEENT: Head is normocephalic. Pupils are equal, round. Sclerae anicteric. Mucous membranes of the mouth are moist. No JVD. No carotid bruit. CHEST EXAMINATION: Lungs are clear to auscultation. No chest wall tenderness is noted on palpation or with deep breathing. HEART EXAMINATION: Regular rate and rhythm. S1, S2 heard. No murmurs, gallops or rub. ABDOMEN: Soft, nontender. Positive bowel sounds. EXTREMITIES: 2+ peripheral pulses, no lower extremity edema and no calf tenderness. NEUROLOGIC EXAMINATION: Patient is awake, alert and oriented x3. ASSESSMENT 1. Non-STEMI with persistent chest pain 2. CAD with prior PCI of LAD 05/2015 3. Hypertension 4. Hyperlipidemia 5. Tobacco abuse 6. COPD PLAN Aspirin, heparin. Restart home medications. Given ongoing chest pain urgent heart catheterization and patient agreeable. Check 2-D echo. Tobacco ericka sation. Further recommendations to follow. Past Medical History Past Medical History: COPD, Hyperlipidemia, Hypertension, Myocardial Infarction (MD), Osteoarthritis (OA) Additional Past Medical History / Comment(s): " ENLARGED LIVER-FATTY LIVER " Last Myocardial Infarction Date:: 2013 History of Any Multi-Drug Resistant Organisms: MRSA Date of last positivie culture/infection: 2018 MDRO Source:: Arms, legs, and head Past Surgical History: Orthopedic Surgery Past Anesthesia/Blood Transfusion Reactions: No Reported Reaction Past Psychological History: No Psychological Hx Reported Smoking Status: Current every day smoker, Heavy tobacco smoker - Past Family History Mother Family Medical History: No Reported History Medications and Allergies Home Medications Medication Instructions Recorded Confirmed Type Atorvastatin [Lipitor] 80 mg PO HS #30 tab 06/03/15 12/19/22 Rx lisinopriL [Zestril] 10 mg PO DAILY #30 tab 06/03/15 12/19/22 Rx Albuterol Sulfate [Proair Hfa] 1 - 2 puff INHALATION RT-Q6H PRN 08/28/21 History Budesonide-Formot 160-4.5 Mcg 2 puff INHALATION RT-BID 08/28/21 12/19/22 History [Symbicort 160-4.5 Mcg Inhaler] Ezetimibe [Zetia] 10 mg PO HS 08/28/21 12/19/22 History Fluticasone Nasal [place] [Flonase 2 spray EA NOSTRIL BID 08/28/21 12/19/22 History Nasal [place]] Fenofibrate Nanocrystallized 145 mg PO HS 12/19/22 12/19/22 History [Fenofibrate] Metoprolol Succinate [Metoprolol 25 mg PO DAILY 12/19/22 12/19/22 History Succinate ER] Allergies Allergy/AdvReac Type Severity Reaction Status Date / Time morphine Allergy Nausea & Verified 12/19/22 15:15 Vomiting Physical Exam Vitals: Vital Signs Temp Pulse Resp BP Pulse Ox 12/19/22 18:23 75 18 145/89 99 12/19/22 17:22 80 22 138/87 99 12/19/22 15:48 77 22 151/96 98 12/19/22 13:41 97 F L 93 18 170/104 97 Intake and Output 12/19/22 12/19/22 12/19/22 06:59 14:59 22:59 Other: Weight 104.326 kg Results 12/19/22 13:52 12/19/22 13:52 Cardiac Enzymes 12/19/22 12/19/22 12/19/22 Range/Units 13:52 13:52 16:47 AST 67 H (17-59) U/L Troponin I <0.012 1.350 H* (0.000-0.034) ng/mL Coagulation 12/19/22 Range/Units 13:52 PT 9.6 L (10.0-12.5) sec APTT 22.3 (22.0-30.0) sec CBC 12/19/22 Range/Units 13:52 WBC 13.9 H (3.8-10.6) k/uL RBC 5.26 (4.30-5.90) m/uL Hgb 15.5 (13.0-17.5) gm/dL Hct 46.3 (39.0-53.0) % Plt Count 424 (150-450) k/uL Comprehensive Metabolic Panel 12/19/22 Range/Units 13:52 Sodium 140 (137-145) mmol/L Potassium 4.8 (3.5-5.1) mmol/L Chloride 107 (98-107) mmol/L Carbon Dioxide 19 L (22-30) mmol/L BUN 15 (9-20) mg/dL Creatinine 1.04 (0.66-1.25) mg/dL Glucose 132 H (74-99) mg/dL Calcium 10.3 H (8.4-10.2) mg/dL AST 67 H (17-59) U/L ALT 96 H (4-49) U/L Alkaline Phosphatase 91 (38-126) U/L Total Protein 8.0 (6.3-8.2) g/dL Albumin 4.8 (3.5-5.0) g/dL Current Medications Generic Name Dose Route Start Last Admin Trade Name Freq PRN Reason Stop Dose Admin Aspirin 325 mg 12/20/22 09:00 Aspirin 325 Mg Tab PO DAILY SAIDA Nitroglycerin 0.4 mg 12/19/22 15:55 12/19/22 16:41 Nitroglycerin Sl Tabs 0.4 Mg Tab SUBLINGUAL 0.4 mg Q5M PRN Administration Chest Pain Intake and Output 12/19/22 12/19/22 12/19/22 06:59 14:59 22:59 Other: Weight 104.326 kg Patient Weight 12/20/22 06:59 Weight 104.326 kg 12/19/22 13:52 12/19/22 13:52
[2022-12-19] MEDS ORDERED: fentaNYL (PF) 50 MCG/ML 2 ML AMP IVP ONE (19:09)
[2022-12-19] MEDS ORDERED: MIDAZOLAM 2 MG/2 ML VIAL IVP ONE (19:09)
[2022-12-19] MEDS ORDERED: LIDOCAINE 1% INJ 10MG/ML (20 ML MDV) SQ ONE (19:10)
[2022-12-19] MEDS ORDERED: VERAPAMIL SYRINGE (5 MG/10 ML) INTRAARTER ONE (19:12)
[2022-12-19] MEDS: HEPARIN SODIUM 1,000 UN/ML (10ML VL) IVP ONE ×2 (19:14→19:23)
[2022-12-19] MEDS ORDERED: TICAGRELOR 90 MG TAB ONE (19:18)
[2022-12-19] MEDS ORDERED: TICAGRELOR 90 MG TAB PO ONE (19:24)
[2022-12-19] MEDS: HEPARIN SODIUM 1,000 UN/ML (10ML VL) IV ONE ×5 (19:32→20:30)
[2022-12-19] MEDS ORDERED: HEPARIN SODIUM,PORCINE 30 ML 30 ML ONE (19:40)
[2022-12-19] MEDS ORDERED: IOPAMIDOL-370 200ML BTL INJ ONE (20:31)
[2022-12-19] MEDS ORDERED: MAG HYDROX/AL HYDROX/SIMETH 30 ML CUP PO PRN (20:37)
[2022-12-19] MEDS ORDERED: RX INFO: IV CONTRAST WAS GIVEN 1 EACH MISC MISCELLANE PRN (20:37)
[2022-12-19] MEDS ORDERED: ZOLPIDEM 5 MG TAB PO PRN (20:37)
[2022-12-19] MEDS ORDERED: ATROPINE SULFATE 0.1 MG/ML 10ML SYRINGE IV PRN (20:37)
--- NOTE | 2022-12-19 20:37 | P.PRCINT ---
Percutaneous Coronary Int. - Percutaneous Coronary Intervention Percutaneous Coronary Intervention: PROCEDURES PERFORMED: Left heart catheterization, bilateral coronary angiography, ultrasound guided arterial access, intravascular ultrasound LAD, PCI LAD with a 3.5 x 23 mm Xience KATERIN, postdilated with a 3.75 noncompliant balloon INDICATION: Non-STEMI with ongoing chest pain CONSENT:I have discussed the risks, benefits and alternative therapies for the above-mentioned procedure and for both sedation/analgesia as well as necessary blood product administration, if indicated, as they pertain to this patient. The patient has indicated understanding and acceptance of the risks and procedures discussed. PROCEDURE: After the risks, benefits and alternatives of the above mentioned procedure explained in detail with the patient, informed consent was obtained. Patient was taken to the catheterization lab and prepped and draped in usual fashion. Ultrasound guidance was used to assess for arterial access. 1% lidocaine was used to anesthetize the right radial artery. A 6-[place] sheath was placed in the right radial artery using modified Seldinger technique and ultrasound guidance. Left coronary angiography was performed with a 5-[place] JL 3.5 catheter and right coronary angiography was performed with a 5-[place] AR2 catheter in various views. A 5-[place] AR2 catheter was inserted into the left ventricle and pressure measurements were obtained. The decision was made to perform PCI of LAD. A 6-[place] CLS 3.5 guide was used to engage the left main. Heparin was given for ACT greater than 250. A 0.014 BMW wire was advanced to the distal LAD. A second 0.014 BMW wire was advanced in the distal diagonal 2 branch. Predilation was performed with a 3.0 x 12 mm balloon. Intravascular ultrasound showed reference vessel approximately 3.5- 3.75 mm with some mild disease just before the previous stents and mild disease just after the stent. Stent failure was thought related to under expansion and more proximal and distal stenoses. The stent was noted to just be at the level of the diagonal 2 branch with small amount of jailing. Therefore balloon angioplasty was performed with a 3.75 noncompliant balloon. This showed good stent apposition. Next a 3.5 x 23 mm Xience KATERIN was placed with the stent extending just more proximal to the previously placed stent and extending just distal to the previously placed 3.0 x 18 mm stent. Initially there was some jailing of the diagonal branch however given already had in-stent stenosis felt best treated medically and by the end of the case there is MICHAEL-3 flow. Repeat intravascular ultrasound showed mild under expansion still and therefore the s tent was postdilated with a 3.75 noncompliant balloon. Repeat intravascular ultrasound showed good stent apposition with no dissection. Final angiograms were performed. Preintervention there was 95% stenosis with MICHAEL 3 flow and postintervention there was less than 10% stenosis with MICHAEL 3 flow. There was some jailing of the diagonal branch of her MICHAEL-3 flow The right radial sheath was removed and a TR band was placed with hemostasis achieved. The patient tolerated the procedure well. Patient was transported back to the post catheterization holding area in stable condition. Conscious Sedation: Patient was monitored under the direct supervision of myself for conscious sedation using Versed and fentanyl for a total duration of 73 minutes HEMODYNAMICS: Aortic: 108/70 LV: 105/25, LVEDP 34 SELECTIVE CORONARY ARTERIOGRAPHY: LEFT MAIN: The left main is a large caliber vessel which bifurcates into the LAD and circumflex. There is mild 20% left main stenosis LEFT ANTERIOR DESCENDING CORONARY ARTERY: LAD is a large caliber vessel which wraps around to the apex. There is diffuse mild 20-30% stenosis with a mid LAD stent just after the diagonal 1 branch and an being just at the diagonal 2 branch. This has a 95% in-stent stenosis. Otherwise there are mild luminal irregularities 20-30%. LEFT CIRCUMFLEX CORONARY ARTERY: Left circumflex is a moderate caliber vessel with mild luminal irregularities. RIGHT CORONARY ARTERY: The right coronary artery is a large caliber vessel which gives off a PDA and PLV branch and is the dominant vessel. There is mid RCA 30% stenosis FINAL IMPRESSION: 1. CAD as described above including 95% mid LAD in-stent stenosis 2. Significantly elevated left sided filling pressures 3. Status post PCI LAD with a 3.5 x 23 mm Xience KATERIN, postdilated with a 3.75 noncompliant balloon PLAN: 1. Aggressive risk factor modification per most recent ACC/AHA guidelines. 2. Continue dual antiplatelets with aspirin and Brillinta for 12 months 3. Tobacco cessation discussed with patient 4. Heparin drip for 24 hours given some jailing of diagonal branch.
[2022-12-19] MEDS ORDERED: SODIUM CHLORIDE 0.9% 1,000 ML in EMPTY BAG 1 BAG IV SCH (20:45)
[2022-12-19 21:31] LABS: Basophils # (A) 0.1 k/uL (0-0.2); Basophils % (A) 0 %; Eosinophils # (A) 0.3 k/uL (0-0.7); Eosinophils % (A) 2 %; HCT 43.6 % (39.0-53.0); HGB 14.2 gm/dL (13.0-17.5); Lymphocytes # (A) 3.5 k/uL (1.0-4.8); Lymphocytes % (A) 27 %; MCH 29.5 pg (25.0-35.0); MCHC 32.6 g/dL (31.0-37.0); MCV 90.5 fL (80.0-100.0); Mean Platelet Volume 7.3; Monocytes # (A) 0.7 k/uL (0-1.0); Monocytes % (A) 5 %; Neutrophils # (A) 8.5 k/uL (1.3-7.7); Neutrophils % (A) 64 %; Platelet Count 348 k/uL (150-450); RBC 4.81 m/uL (4.30-5.90); RDW 13.8 % (11.5-15.5); WBC 13.3 k/uL (3.8-10.6)
[2022-12-19] MEDS: NICOTINE 14MG/24HR PATCH TRANSDERM SCH (21:35)
[2022-12-19] MEDS: HYDROcodone/APAP 5-325MG 1 EACH TAB PO PRN (21:35)
[2022-12-19 21:48] LABS: INR 1.1 (<1.2); Prothrombin Time 12.1 sec (10.0-12.5)
[2022-12-19 22:01] LABS: Partial Thromboplastin Time >200.0 sec (22.0-30.0)
[2022-12-20] MEDS: HEPARIN SOD,PORK IN 0.45% NACL 25,000 UNIT in 0.45% NACL 1 250ML.BAG IV SCH ×2 (01:40→20:51)
[2022-12-20 04:00] LABS: Basophils % (A) 0 %; Eosinophils # (A) 0.3 k/uL (0-0.7); Eosinophils % (A) 2 %; HCT 40.8 % (39.0-53.0); HGB 13.8 gm/dL (13.0-17.5); Lymphocytes # (A) 4.4 k/uL (1.0-4.8); Lymphocytes % (A) 35 %; MCH 29.7 pg (25.0-35.0); MCHC 33.7 g/dL (31.0-37.0); MCV 88.2 fL (80.0-100.0); Mean Platelet Volume 7.5; Monocytes # (A) 0.6 k/uL (0-1.0); Monocytes % (A) 5 %; Neutrophils % (A) 56 %; Platelet Count 345 k/uL (150-450); RBC 4.62 m/uL (4.30-5.90); RDW 14.1 % (11.5-15.5); WBC 12.6 k/uL (3.8-10.6)
[2022-12-20 04:06] LABS: Prothrombin Time 10.5 sec (10.0-12.5)
[2022-12-20 04:26] LABS: African American GFR (CKD) 85 (>60 ml/min/1.73 sqM); Non-African American GFR(CKD) 73 (>60 ml/min/1.73 sqM)
[2022-12-20] MEDS: HYDROcodone/APAP 5-325MG 1 EACH TAB PO PRN ×3 (05:15→20:16)
[2022-12-20] MEDS: HEPARIN SODIUM 1,000 UN/ML (10ML VL) IV PRN ×2 (07:02→13:37)
[2022-12-20] MEDS: ASPIRIN 81 MG PO SCH (08:41)
[2022-12-20] MEDS: NICOTINE 14MG/24HR PATCH TRANSDERM SCH (08:42)
[2022-12-20] MEDS: TICAGRELOR 90 MG TAB PO SCH ×2 (08:42→20:16)
[2022-12-20] MEDS ORDERED: ASPIRIN 325 MG TAB PO SCH (09:00)
[2022-12-20] MEDS ORDERED: ALBUTEROL NEBULIZED 2.5 MG/3 ML INHALATION PRN (11:22)
--- NOTE | 2022-12-20 11:37 | P.HPIM ---
History of Present Illness H&P Date: 12/20/22 This is a 57-year-old male who presented to the emergency department with chest pain that had been ongoing over the last week and progressively getting worse. Patient states he started having some nausea with increased sweating and pain that was persisting and not getting any better. Patient follows with Dr. Kd Eagle in the outpatient setting with a past medical history of COPD, hyperlipid emia, hypertension, previous myocardial infarction, osteoarthritis, obesity, heavy smoking and reports at least 7 packs per day and denies any other illicit IV drug use or alcohol use. Patient reports he smokes approximately one joint of marijuana per day as well. Patient reports approximately 7 years ago he had a heart attack and stenting was done to the LAD. Chest x-ray showed no acute cardiopulmonary process, EKG showed sinus rhythm with a heart rate of 96 bpm.. Initial troponin was negative although second troponins were trending up and patient was brought for cardiac catheterization. Patient is status post PCI stenting to the LAD last night and maintained on heparin. 2-D echo ordered and pending at this time. Review Of Systems: Constitutional: No fever, no chills, no night sweats. No weight change. No weakness, fatigue or lethargy. No daytime sleepiness. EENT: No headache. No blurred vision or double vision, no loss of vision. No loss of Hearing, no ringing in the ears, no dizziness. No nasal drainage or congestion. No epistaxis. No sore throat. Lungs: Reports some shortness of breath, chronic smokers cough, no sputum production. No wheezing. Cardiovascular: Reports chest pain that has resolved, no lower extremity edema. No palpitations. No paroxysmal nocturnal dyspnea. No orthopnea. No lightheadedness or dizziness. No syncopal episodes. Abdominal: No abdominal pain. No nausea, vomiting. No diarrhea. No constipation. No bloody or tarry stools.. No loss of appetite. Genitourinary: No dysuria, increased frequency, urgency. No urinary retention. Musculoskeletal: No myalgias. No muscle weakness, no gait dysfunction, no frequent falls. No back pain. No neck pain. Integumentary: No wounds, no lesions. No rash or pruritus. No unusual bruisi ng. No change in hair or nails. Neurologic: No aphasia. No facial droop. No change in mentation. No head injury. No headache. No paralysis. No paresthesia. Psychiatric: No depression. No anxiety. No mood swings. Endocrine: No abnormal blood sugars. No weight change. No excessive sweating or thirst. No cold intolerance. PHYSICAL EXAMINATION: GENERAL: The patient is alert and oriented x4, Well developed, well nourished. Obese. HEENT: Pupils are round and equally reacting to light. EOMI. no scleral icterus. No conjunctival pallor. Normocephalic, atraumatic. No pharyngeal erythema. No thyromegaly. CARDIOVASCULAR: S1 and S2 muffled PULMONARY: Breath sounds diminished bilaterally otherwise clear to auscultation with no wheezing or rhonchi noted. ABDOMEN: soft. Nontender on exam. obese. Protuberant. non-distended, normoactive bowel sounds. No palpable organomegaly. MUSCULOSKELETAL: No joint swelling or deformity. EXTREMITIES: No cyanosis, clubbing, or pedal edema. NEUROLOGICAL: Gross neurological examination did not reveal any focal deficits. SKIN: No rashes. Assessment: Chest pain, initial troponin was negative although second troponin was 1.350, third 6.470 status post PCI stenting to LAD NSTEMI secondary to above Obesity Continued ongoing nicotine abuse, smokes 7 packs per day THC use History of COPD not an exacerbation History of coronary artery disease Previous LAD stenting in 2017 Hypertension history Hyperlipidemia History of osteoarthritis GI prophylaxis DVT prophylaxis Full code Plan: Patient initial troponin was negative although patient continuing to have chest pain and second and third troponins were positive and cardiology consulted and evaluated recommend cardiac catheterization and patient is status post PCI stenting to the LAD Cardiology following closely recommending continuing on IV heparin for 24 hours given the diagonal branch jailing and then will be maintained on Brilinta and aspirin and extreme risk factor modifications of lifestyle choices Strongly encouraged smoking cessation and have started nicotine patch along with Nicorette gum. Patient reports no desire to quit smoking Patient also reports to using approximately one joint of marijuana daily and encouraged patient against this Patient will be monitored overnight and continued on telemetry monitoring with discussion of discharge planning in 24 hours Home medications reviewed and resumed Prognosis is guarded The impression and plan of care has been dictated by Mary Sweet, nurse practitioner as directed. Dr. Willis MD I have performed a history and examination and MDM of this patient, discussed the same with the dictator, and agree with the dictator's assessment and plan as written ,documented as a scribe. Based on total visit time, I have performed more than 50% of the visit. Any additional findings or plans will be noted. Past Medical History Past Medical History: COPD, Hyperlipidemia, Hypertension, Myocardial Infarction (NH), Osteoarthritis (OA) Additional Past Medical History / Comment(s): " ENLARGED LIVER-FATTY LIVER " Last Myocardial Infarction Date:: 2013 History of Any Multi-Drug Resistant Organisms: MRSA Date of last positivie culture/infection: 2019 MDRO Source:: Arms, legs, and head Past Surgical History: Heart Catheterization With Stent, Orthopedic Surgery Additional Past Surgical History / Comment(s): ankles, left elbow, right leg, nose, heart cath w/ stent Past Anesthesia/Blood Transfusion Reactions: No Reported Reaction Date of Last Stent Placement:: 12/19/22 Past Psychological History: No Psychological Hx Reported Smoking Status: Current every day smoker, Heavy tobacco smoker Past Alcohol Use History: None Reported, Occasional Additional Past Alcohol Use History / Comment(s): STARTED SMOKING AT AGE 9 SMOKES MULTIPLE PACKS PER DAY" Past Drug Use History: Marijuana Additional Drug Use History / Comment(s): DAILY- TO HOLD 24 HOURS PRIOR - Past Family History Mother Family Medical History: No Reported History Medications and Allergies Home Medications Medication Instructions Recorded Confirmed Type Atorvastatin [Lipitor] 80 mg PO HS #30 tab 06/03/15 12/19/22 Rx lisinopriL [Zestril] 10 mg PO DAILY #30 tab 06/03/15 12/19/22 Rx Albuterol Sulfate [Proair Hfa] 1 - 2 puff INHALATION RT-Q6H PRN 08/28/21 12/19/22 History Budesonide-Formot 160-4.5 Mcg 2 puff INHALATION RT-BID 08/28/21 12/19/22 History [Symbicort 160-4.5 Mcg Inhaler] Ezetimibe [Zetia] 10 mg PO HS 08/28/21 12/19/22 History Fluticasone Nasal [place] [Flonase 2 spray EA NOSTRIL BID 08/28/21 12/19/22 History Nasal [place]] Fenofibrate Nanocrystallized 145 mg PO HS 12/19/22 12/19/22 History [Fenofibrate] Metoprolol Succinate [Metoprolol 25 mg PO DAILY 12/19/22 12/19/22 History Succinate ER] Allergies Allergy/AdvReac Type Severity Reaction Status Date / Time morphine Allergy Nausea & Verified 12/19/22 15:15 Vomiting Physical Exam Vitals: Vital Signs Temp Pulse Pulse Resp BP BP Pulse Ox 12/20/22 08:30 98.2 F 107 H 22 144/79 96 12/20/22 04:29 98.3 F 88 16 132/79 97 12/20/22 02:00 86 12/20/22 00:10 86 16 126/73 97 12/19/22 23:22 67 16 124/67 98 12/19/22 22:42 83 12/19/22 22:22 87 16 133/74 97 12/19/22 21:52 89 16 144/69 98 12/19/22 21:22 96 16 155/86 98 12/19/22 21:07 90 16 145/81 97 12/19/22 20:52 97.6 F 83 16 139/87 97 12/19/22 18:23 75 18 145/89 99 12/19/22 17:22 80 22 138/87 99 12/19/22 15:48 77 22 151/96 98 12/19/22 13:41 97 F L 93 18 170/104 97 Intake and Output 12/19/22 12/20/22 12/20/22 22:59 06:59 14:59 Intake Total 1480 25.748 Output Total 450 Balance 1030 25.748 Intake: IV 400 Intake, IV Titration 25.748 Amount Heparin Sod,Pork in 0.45% 25.748 NaCl 25,000 unit In 0.45 % NaCl 1 250ml.bag @ 9. 585 UNITS/KG/HR 10 mls/hr IV .Q24H [facility] Rx#: [id number] Oral 1080 Output: Urine 450 Other: Voiding Method Urinal Urinal # Voids 1 1 Weight 104.326 kg Results CBC & Chem 7: 12/20/22 03:40 12/20/22 03:40 Labs: Abnormal Lab Results - Last 24 Hours (Table) 12/19/22 12/19/22 12/19/22 Range/Units 13:52 13:52 13:52 WBC 13.9 H (3.8-10.6) k/uL Neutrophils # (1.3-7.7) k/uL Lymphocytes # 5.6 H (1.0-4.8) k/uL PT 9.6 L (10.0-12.5) sec APTT (22.0-30.0) sec Carbon Dioxide 19 L (22-30) mmol/L Glucose 132 H (74-99) mg/dL Calcium 10.3 H (8.4-10.2) mg/dL AST 67 H (17-59) U/L ALT 96 H (4-49) U/L Troponin I (0.000-0.034) ng/mL Triglycerides (0.00-149.00) mg/dL Cholesterol (0.00-200.00) mg/dL VLDL Cholesterol, Calc (5.00-40.00) mg/dL HDL Cholesterol (40.00-60.00) mg/dL 12/19/22 12/19/22 12/19/22 Range/Units 16:47 21:00 21:00 WBC 13.3 H (3.8-10.6) k/uL Neutrophils # 8.5 H (1.3-7.7) k/uL Lymphocytes # (1.0-4.8) k/uL PT (10.0-12.5) sec APTT (22.0-30.0) sec Carbon Dioxide (22-30) mmol/L Glucose (74-99) mg/dL Calcium (8.4-10.2) mg/dL AST (17-59) U/L ALT (4-49) U/L Troponin I 1.350 H* 6.470 H* (0.000-0.034) ng/mL Triglycerides (0.00-149.00) mg/dL Cholesterol (0.00-200.00) mg/dL VLDL Cholesterol, Calc (5.00-40.00) mg/dL HDL Cholesterol (40.00-60.00) mg/dL 12/19/22 12/20/22 12/20/22 Range/Units 21:00 03:40 03:40 WBC 12.6 H (3.8-10.6) k/uL Neutrophils # (1.3-7.7) k/uL Lymphocytes # (1.0-4.8) k/uL PT (10.0-12.5) sec APTT >200.0 H* (22.0-30.0) sec Carbon Dioxide (22-30) mmol/L Glucose (74-99) mg/dL Calcium (8.4-10.2) mg/dL AST (17-59) U/L ALT (4-49) U/L Troponin I (0.000-0.034) ng/mL Triglycerides 641.00 H (0.00-149.00) mg/dL Cholesterol 217.00 H (0.00-200.00) mg/dL VLDL Cholesterol, Calc 128.20 H (5.00-40.00) mg/dL HDL Cholesterol 22.60 L (40.00-60.00) mg/dL Thrombosis Risk Factor Assmnt - DVT/VTE Prophylaxis DVT/VTE Prophylaxis: Pharmacologic Prophylaxis ordered - Choose All That Apply Any of the Below Risk Factors Present?: Yes Each Factor Represents 1 point: Acute NH, Age 41-60 years Other Risk Factors: No Thrombosis Risk Factor Assessment Total Risk Factor Score: 2 Thrombosis Risk Factor Assessment Level: Low Risk Assessment and Plan Time with Patient: Greater than 30
--- NOTE | 2022-12-20 11:51 | P.PN ---
Subjective HISTORY OF PRESENT ILLNESS: This is a pleasant 57-year-old with past medical history significant for hypertension, hyperlipidemia, tobacco abuse, COPD, CAD status post PCI of LAD May 2015. Patient presents with chest pain which has been going off and on for the last week however More intense and persistent sepsis morning and therefore presented to emergency department. He had a more significant episode when he came in with a 10 out of 10 pain spell exactly similar to when he had his stent in May 2015. The pain somewhat subsided however he had a recurrent significant 5 out of 10 chest pain approximately 5 PM. Currently he states he is having 2 out of 10 chest pain. Blood work shows white blood cell count 13.9, d-dimer 0.27, creatinine 1.0, troponin 0.012, 1.3. He did have repeat EKG which shows sinus rhythm, normal axis, minimal T-wave inversions V1 through V4. He does smoke 8 packs a day occasional marijuana no illicit drugs. Denies any family history of CAD. 12/20/2022 Patient is status post cardiac catheterization with Dr. Warren revealing 95% mid LAD in-stent stenosis. Patient underwent PCI of the LAD. Patient was also found to have significantly elevated left-sided filling pressures. Patient examined this morning at the bedside. Patient denies chest pain or pressure. He denies shortness of breath. Vital signs are stable. He remains on IV heparin PHYSICAL EXAM: VITAL SIGNS: Reviewed. GENERAL: Well-developed in no acute distress. NECK: Supple. No JVD or thyromegaly LUNGS: Respirations even and unlabored. Lungs essentially clear to auscultation bilaterally. HEART: Regular rate and rhythm. S1 and S2 heard. EXTREMITIES: Normal range of motion. No clubbing or cyanosis. Peripheral pulses intact. No lower extremity edema ASSESSMENT: 1. Non-STEMI with persistent chest pain, status post PCI of the LAD 2. CAD with prior PCI of LAD 05/2015 3. Hypertension 4. Hyperlipidemia 5. Tobacco abuse 6. COPD PLAN: Continue current cardiac medications Continue dual antiplatelet therapy with aspirin and Brilinta Add metoprolol tartrate 25 mg 3 times a day Add losartan 25 mg daily Add atorvastatin 80 mg at night Continue IV heparin until 2044 tonight secondary to some jailing of diagonal branch Continue to monitor patient for an additional 24 hours Anticipate discharge home tomorrow if patient remains stable Nurse practitioner note has been reviewed by physician. Signing provider agrees with the documented findings, assessment, and plan of care. Objective - Vital Signs Vital signs: Vital Signs Temp 98.2 F 12/20/22 08:30 Pulse 107 H 12/20/22 08:30 Resp 22 12/20/22 08:30 BP 144/79 12/20/22 08:30 Pulse Ox 96 12/20/22 08:30 FiO2 Intake & Output 12/19/22 12/20/22 12/20/22 18:59 06:59 18:59 Intake Total 400 1080 25.748 Output Total 450 Balance 400 630 25.748 Weight 104.326 kg 104.326 kg Intake: IV 400 Intake, IV Titration 25.748 Amount Heparin Sod,Pork in 0.45% 25.748 NaCl 25,000 unit In 0.45 % NaCl 1 250ml.bag @ 9. 585 UNITS/KG/HR 10 mls/hr IV .Q24H [facility] Rx#: [id number] Oral 1080 Output: Urine 450 Other: Voiding Method Urinal # Voids 1 - Labs CBC & Chem 7: 12/20/22 03:40 12/20/22 03:40 Labs: Abnormal Lab Results - Last 24 Hours (Table) 12/19/22 12/19/22 12/19/22 Range/Units 13:52 13:52 13:52 WBC 13.9 H (3.8-10.6) k/uL Neutrophils # (1.3-7.7) k/uL Lymphocytes # 5.6 H (1.0-4.8) k/uL PT 9.6 L (10.0-12.5) sec APTT (22.0-30.0) sec Carbon Dioxide 19 L (22-30) mmol/L Glucose 132 H (74-99) mg/dL Calcium 10.3 H (8.4-10.2) mg/dL AST 67 H (17-59) U/L ALT 96 H (4-49) U/L Troponin I (0.000-0.034) ng/mL Triglycerides (0.00-149.00) mg/dL Cholesterol (0.00-200.00) mg/dL VLDL Cholesterol, Calc (5.00-40.00) mg/dL HDL Cholesterol (40.00-60.00) mg/dL 12/19/22 12/19/2212/19/23 Range/Units 16:47 21:00 21:00 WBC 13.3 H (3.8-10.6) k/uL Neutrophils # 8.5 H (1.3-7.7) k/uL Lymphocytes # (1.0-4.8) k/uL PT (10.0-12.5) sec APTT (22.0-30.0) sec Carbon Dioxide (22-30) mmol/L Glucose (74-99) mg/dL Calcium (8.4-10.2) mg/dL AST (17-59) U/L ALT (4-49) U/L Troponin I 1.350 H* 6.470 H* (0.000-0.034) ng/mL Triglycerides (0.00-149.00) mg/dL Cholesterol (0.00-200.00) mg/dL VLDL Cholesterol, Calc (5.00-40.00) mg/dL HDL Cholesterol (40.00-60.00) mg/dL 12/19/22 12/20/22 12/20/22 Range/Units 21:00 03:40 03:40 WBC 12.6 H (3.8-10.6) k/uL Neutrophils # (1.3-7.7) k/uL Lymphocytes # (1.0-4.8) k/uL PT (10.0-12.5) sec APTT >200.0 H* (22.0-30.0) sec Carbon Dioxide (22-30) mmol/L Glucose (74-99) mg/dL Calcium (8.4-10.2) mg/dL AST (17-59) U/L ALT (4-49) U/L Troponin I (0.000-0.034) ng/mL Triglycerides 641.00 H (0.00-149.00) mg/dL Cholesterol 217.00 H (0.00-200.00) mg/dL VLDL Cholesterol, Calc 128.20 H (5.00-40.00) mg/dL HDL Cholesterol 22.60 L (40.00-60.00) mg/dL
[2022-12-20] MEDS: SYMBICORT 160-4.5 MCG INHALER INHALATION SCH ×2 (12:03→20:52)
[2022-12-20] MEDS: NICOTINE 21MG/24HR PATCH TRANSDERM SCH (12:20)
[2022-12-20] MEDS: LOSARTAN 25 MG TAB PO SCH (12:20)
[2022-12-20] MEDS: METOPROLOL TARTRATE 25 MG TAB PO SCH ×3 (12:21→20:16)
[2022-12-20 15:57] VITALS: BMI 29.5
[2022-12-20] MEDS: FLUTICASONE 50MCG/SPRAY NASAL 16GM EA NOSTRIL SCH ×2 (20:15→20:16)
[2022-12-20] MEDS ORDERED: ATORVASTATIN 80 MG TAB PO SCH (21:00)
[2022-12-20] MEDS ORDERED: FENOFIBRATE 160 MG TAB PO SCH (21:00)
[2022-12-20] MEDS ORDERED: EZETIMIBE 10 MG TAB PO SCH (21:00)
[2022-12-20] MEDS: NICOTINE GUM (POLACRILEX) 2 MG GUM BUCCAL PRN (21:11)
[2022-12-21] MEDS: NICOTINE GUM (POLACRILEX) 2 MG GUM BUCCAL PRN ×4 (00:52→12:52)
[2022-12-21 03:32] VITALS: TEMP 98.2
[2022-12-21] MEDS: HYDROcodone/APAP 5-325MG 1 EACH TAB PO PRN ×2 (06:04→12:52)
[2022-12-21] MEDS: SYMBICORT 160-4.5 MCG INHALER INHALATION SCH (08:18)
[2022-12-21] MEDS: ASPIRIN 81 MG PO SCH (08:30)
[2022-12-21] MEDS: NICOTINE 21MG/24HR PATCH TRANSDERM SCH (08:30)
[2022-12-21] MEDS: METOPROLOL TARTRATE 25 MG TAB PO SCH ×2 (08:31→15:42)
[2022-12-21] MEDS: LOSARTAN 25 MG TAB PO SCH (08:31)
[2022-12-21] MEDS: TICAGRELOR 90 MG TAB PO SCH (08:31)
[2022-12-21] MEDS: FLUTICASONE 50MCG/SPRAY NASAL 16GM EA NOSTRIL SCH (08:34)
[2022-12-21 08:50] LABS: Basophils % (A) 0 %; Eosinophils # (A) 0.2 k/uL (0-0.7); Eosinophils % (A) 2 %; HCT 41.7 % (39.0-53.0); HGB 13.6 gm/dL (13.0-17.5); Lymphocytes # (A) 3.5 k/uL (1.0-4.8); Lymphocytes % (A) 26 %; MCHC 32.7 g/dL (31.0-37.0); MCV 88.9 fL (80.0-100.0); Mean Platelet Volume 7.5; Monocytes # (A) 0.8 k/uL (0-1.0); Monocytes % (A) 6 %; Neutrophils # (A) 8.4 k/uL (1.3-7.7); Neutrophils % (A) 64 %; Platelet Count 323 k/uL (150-450); RBC 4.69 m/uL (4.30-5.90); WBC 13.2 k/uL (3.8-10.6)
[2022-12-21 09:17] LABS: African American GFR (CKD) >90 (>60 ml/min/1.73 sqM); Anion Gap 13 mmol/L; Blood Urea Nitrogen 14 mg/dL (9-20); Calcium 9.7 mg/dL (8.4-10.2); Carbon Dioxide 21 mmol/L (22-30); Chloride 103 mmol/L (98-107); Glucose 159 mg/dL (74-99); Non-African American GFR(CKD) 87 (>60 ml/min/1.73 sqM); Potassium 4.4 mmol/L (3.5-5.1); Sodium 137 mmol/L (137-145)
[2022-12-21 11:51] VITALS: RESP 17
--- NOTE | 2022-12-21 12:06 | P.PN ---
Subjective HISTORY OF PRESENT ILLNESS: This is a pleasant 57-year-old with past medical history significant for hypertension, hyperlipidemia, tobacco abuse, COPD, CAD status post PCI of LAD May 2015. Patient presents with chest pain which has been going off and on for the last week however More intense and persistent sepsis morning and therefore presented to emergency department. He had a more significant episode when he came in with a 10 out of 10 pain spell exactly similar to when he had his stent in May 2015. The pain somewhat subsided however he had a recurrent significant 5 out of 10 chest pain approximately 5 PM. Currently he states he is having 2 out of 10 chest pain. Blood work shows white blood cell count 13.9, d-dimer 0.27, creatinine 1.0, troponin 0.012, 1.3. He did have repeat EKG which shows sinus rhythm, normal axis, minimal T-wave inversions V1 through V4. He does smoke 8 packs a day occasional marijuana no illicit drugs. Denies any family history of CAD. 12/20/2022 Patient is status post cardiac catheterization with Dr. Warren revealing 95% mid LAD in-stent stenosis. Patient underwent PCI of the LAD. Patient was also found to have significantly elevated left-sided filling pressures. Patient examined this morning at the bedside. Patient denies chest pain or pressure. He denies shortness of breath. Vital signs are stable. He remains on IV heparin 12/21/2022 Patient examined this morning at the bedside. Patient denies chest pain or pressure. He denies shortness of breath. Vital signs are stable. Patient is hoping to be discharged home today. PHYSICAL EXAM: VITAL SIGNS: Reviewed. GENERAL: Well-developed in no acute distress. NECK: Supple. No JVD or thyromegaly LUNGS: Respirations even and unlabored. Lungs essentially clear to auscultation bilaterally. HEART: Regular rate and rhythm. S1 and S2 heard. EXTREMITIES: Normal range of motion. No clubbing or cyanosis. Peripheral pulses intact. No lower extremity edema ASSESSMENT: 1. Non-STEMI with persistent chest pain, status post PCI of the LAD 2. CAD with prior PCI of LAD 05/2015 3. Hypertension 4. Hyperlipidemia 5. Tobacco abuse 6. COPD PLAN: Continue current cardiac medications Continue dual antiplatelet therapy with aspirin and Brilinta Obtain 2-D echo to assess cardiac structure and function Patient may be discharged home this afternoon after echo is completed Nurse practitioner note has been reviewed by physician. Signing provider agrees with the documented findings, assessment, and plan of care. Objective - Vital Signs Vital signs: Vital Signs Temp 98.2 F 12/21/22 08:25 Pulse 77 12/21/22 08:25 Resp 18 12/21/22 08:25 BP 141/88 12/21/22 08:25 Pulse Ox 97 12/21/22 08:25 FiO2 Intake & Output 12/20/22 12/21/22 12/21/22 18:59 06:59 18:59 Intake Total 1277.578 240 Balance 1277.578 240 Weight 104.326 kg Intake: Intake, IV Titration 77.578 Amount Heparin Sod,Pork in 0.45% 77.578 NaCl 25,000 unit In 0.45 % NaCl 1 250ml.bag @ 9. 585 UNITS/KG/HR 10 mls/hr IV .Q24H [facility] Rx#: [id number] Oral 1200 240 Other: Voiding Method Urinal Urinal # Voids 3 # Bowel Movements 1 - Labs CBC & Chem 7: 12/21/22 08:08 12/21/22 08:08 Labs: Abnormal Lab Results - Last 24 Hours (Table) 12/20/22 Range/Units 03:40 Triglycerides 641.00 H (0.00-149.00) mg/dL Cholesterol 217.00 H (0.00-200.00) mg/dL LDL Cholesterol Direct 133.00 H (0.00-129.00) mg/dL VLDL Cholesterol, Calc 128.20 H (5.00-40.00) mg/dL HDL Cholesterol 22.60 L (40.00-60.00) mg/dL
--- NOTE | 2022-12-21 13:21 | CA ---
Transthoracic Echo Report Name: Devon Torres Age: 57 Gender: M : 1965 Exam Date: 12/21/2022 10:43 Exam Location: [facility] Ht (in): 74 Wt (lb): 230 Ordering Physician: Katy Pride Attending/Referring Phys: [id number], Shannen Souvenir Assembler Shady Cantu Procedure CPT: Indications: LV function Cardiac Hx: Technical Quality: Fair Contrast 1: Definity Total Dose (mL): 5 Contrast 2: Total Dose (mL): MEASUREMENTS (Male / Female) Normal Values 2D ECHO LV Diastolic Diameter PLAX 5.9 cm 4.2 - 5.9 / 3.9 - 5.3 cm LV Systolic Diameter PLAX 4.1 cm IVS Diastolic Thickness 1.4 cm 0.6 - 1.0 / 0.6 - 0.9 cm LVPW Diastolic Thickness 1.5 cm 0.6 - 1.0 / 0.6 - 0.9 cm LV Relative Wall Thickness 0.5 RV Internal Dim ED PLAX 3.0 cm LVOT Diameter 2.2 cm Aortic Root Diameter 3.2 cm LA Systolic Diameter LX 2.5 cm 3.0 - 4.0 / 2.7 - 3.8 cm LV Diastolic Volume MOD BP 101.2 cm??? 67 - 155 / 56 - 104 cm??? LV Systolic Volume MOD BP 38.8 cm??? 22 - 58 / 19 - 49 cm??? LV Ejection Fraction MOD BP 61.7 % >= 55 % LV Cardiac Index MOD BP 1881.3 cm???/min???m??? LV Diastolic Volume MOD 4C 87.8 cm??? LV Systolic Volume MOD 4C 32.9 cm??? LV Ejection Fraction MOD 4C 62.5 % LV Cardiac Index MOD 4C 1654.5 cm???/min???m??? LV Diastolic Length 4C 8.0 cm LV Systolic Length 4C 7.2 cm LV Diastolic Volume MOD 2C 112.5 cm??? LV Systolic Volume MOD 2C 43.7 cm??? LV Ejection Fraction MOD 2C 61.2 % LV Cardiac Index MOD 2C 2076.0 cm???/min???m??? LV Diastolic Length 2C 7.7 cm LV Systolic Length 2C 6.8 cm LA Volume 42.3 cm??? 18 - 58 / 22 - 52 cm??? LA Volume Index 17.9 cm???/m??? 16 - 28 cm???/m??? DOPPLER AV Peak Velocity 123.3 cm/s AV Peak Gradient 6.1 mmHg LVOT Peak Velocity 89.0 cm/s LVOT Peak Gradient 3.2 mmHg LVOT Velocity Time Integral 19.8 cm LVOT Stroke Volume 74.5 cm??? LVOT Stroke Volume Index 32.3 ml/m??? LVOT Cardiac Index 2245.7 cm???/min???m??? AV Area Cont Eq pk 2.7 cm??? MV Peak Velocity 75.7 cm/s MV Peak Gradient 2.3 mmHg MV Mean Velocity 40.8 cm/s MV Mean Gradient 0.8 mmHg MV Velocity Time Integral 24.9 cm MR Peak Velocity 202.6 cm/s MR Peak Gradient 16.4 mmHg TR Peak Velocity 121.4 cm/s TR Peak Gradient 5.9 mmHg Right Ventricular Systolic Press 10.9 mmHg PV Peak Velocity 110.3 cm/s PV Peak Gradient 4.9 mmHg FINDINGS Left Ventricle Normal LV size. Moderate concentric LVH. Anteroapical hypokinesis. Left ventricular ejection fraction is estimated at 35-40 %. Right Ventricle Normal right ventricular size. Right Atrium Normal right atrial size. Left Atrium Normal left atrial size. Mitral Valve Structurally normal mitral valve. Trace MR. Aortic Valve Aortic valve not well visualized. No aortic valve stenosis or regurgitation. Tricuspid Valve Tricuspid valve not well visualized. Trace TR. Pulmonic Valve Pulmonic valve not well visualized. No pulmonic regurgitation. Pericardium Not well visualized. Aorta Normal size aortic root. CONCLUSIONS Definity ECHO contrast used for improved visualization of the endocardial borders (inadequate visualization of two or more contiguous segments). 1. Severely impaired left ventricle systolic function with segmental wall motion abnormality 2. Limited Doppler study with no significant abnormalities Previewed by: Dr. Weston Sparrow MD (Electronically Signed) Final Date: 21 December 2022 13:20
[2022-12-21 15:40] VITALS: BP 129/77; PULSE 88
--- NOTE | 2022-12-25 12:00 | P.DS ---
Providers Date of admission: 12/20/22 10:49 Expected date of discharge: 12/21/22 Attending physician: Brando Hardy Consults: 12/19/22 15:55 Consult Physician Urgent Consulting Provider: Tj Warren Consult Reason/Comments: chest pain Do you want consulting provider notified?: Yes 12/19/22 20:37 Consult Physician Routine Consulting Provider: [facility] Consult Reason/Comments: Post Interventional Patient Do you want consulting provider notified?: Already Contacted Primary care physician: Kd Eagle Hospital Course: Final diagnosis Chest pain, initial troponin was negative although second troponin was 1.350, third 6.470 status post PCI stenting to LAD NSTEMI secondary to above Obesity Continued ongoing nicotine abuse, smokes 7 packs per day THC use History of COPD not an exacerbation History of coronary artery disease Previous LAD stenting in 2017 Hypertension history Hyperlipidemia History of osteoarthritis GI prophylaxis DVT prophylaxis Full code Discharge disposition Patient is being discharged in a stable condition with guarded prognosis to home. Patient will follow-up with Dr. Eagle in the outpatient setting upon discharge. Unsure if patient is transitioning providers but there is a scheduled follow-up appointment with Dr. Medrano in the outpatient setting. Patient follow-up with cardiology this week. Total time taken is greater than 35 minutes. Hospital course This is a 57-year-old male who was recently admitted with chest pain having troponin elevation with nstemi and brought to the Medical Records Coder underwent PCI stenti ng to the LAD. Patient has past medical history of coronary artery disease with previous stenting and did have 2-D echo prior to discharge showing a reduced EF of 35-40%. Patient has been cleared by cardiology for close outpatient follow- up. Patient is a severe tobacco user of 7 packs per day and has been counseled extensively by CONSULTATIONS regarding smoking cessation. Patient is refusing t o quit at this time. Patient reports to feeling well and would like to go home. Patient has been cleared by consultations. Please refer to other consultation notes for further HPI. Currently no reports of chest pain, shortness of breath, or palpitations. Patient is afebrile. No reports of nausea or vomiting and patient is tolerating diet. Patient will be discharged home today. High risk for readmissions given significant comorbidities. Physical exam: Gen: This is a 57-year-old male who is awake, alert and oriented 3, well- developed, well-nourished HEENT: Head is atraumatic, normocephalic. Pupils equal, round. Sclerae is anicteric. NECK: Supple. No JVD. No lymphadenopathy. No thyromegaly. LUNGS: Clear to auscultation. No wheezes or rhonchi. No intercostal retractions. HEART: Regular rate and rhythm. No murmur. ABDOMEN: Soft. Bowel sounds are present. No masses. No tenderness. EXTREMITIES: No pedal edema. No calf tenderness. NEUROLOGICAL: Patient is awake, alert and oriented x3. Cranial nerves 2 through 12 are grossly intact. Please refer to medication reconciliation sheet for a list of medications. The impression and plan of care has been dictated by Mary Sweet, Nurse Practitioner as directed. Dr. Willis MD I have performed a history and examination and MDM of this patient, discussed the same with the dictator, and agree with the dictator's assessment and plan as written ,documented as a scribe. Based on total visit time, I have performed more than 50% of the visit. Patient Condition at Discharge: Fair Plan - Discharge Summary Discharge Rx Participant: No New Discharge Prescriptions: New Aspirin 81 mg PO DAILY #30 tab Ticagrelor [Brilinta] 90 mg PO BID 30 Days #60 tab Nicotine 21Mg/24Hr Patch [Habitrol] 1 patch TRANSDERM DAILY patch Metoprolol Tartrate [Lopressor] 25 mg PO TID #90 tab Nicotine Gum (Polacrilex) [Nicorette] 2 mg BUCCAL Q2HR PRN pieceofgum PRN Reason: Nicotine Cravings Losartan [Cozaar] 25 mg PO DAILY #30 tab Nitroglycerin Sl Tabs [Nitrostat] 0.4 mg SUBLINGUAL Q5M PRN #20 tab PRN Reason: Chest Pain HYDROcodone/APAP 5-325MG [Brockway 5-325] 1 each PO Q6HR PRN #6 tab PRN Reason: Pain Continue Atorvastatin [Lipitor] 80 mg PO HS #30 tab Ezetimibe [Zetia] 10 mg PO HS Albuterol Sulfate [Proair Hfa] 1 - 2 puff INHALATION RT-Q6H PRN PRN Reason: Shortness Of Breath Fenofibrate Nanocrystallized [Fenofibrate] 145 mg PO HS Fluticasone Nasal Jackson [Flonase Nasal Jackson] 2 spray EA NOSTRIL BID Budesonide-Formot 160-4.5 Mcg [Symbicort 160-4.5 Mcg Inhaler] 2 puff INHALATION RT-BID Discontinued lisinopriL [Zestril] 10 mg PO DAILY #30 tab Metoprolol Succinate [Metoprolol Succinate ER] 25 mg PO DAILY Discharge Medication List Atorvastatin [Lipitor] 80 mg PO HS #30 tab 06/03/15 [Rx] Albuterol Sulfate [Proair Hfa] 1 - 2 puff INHALATION RT-Q6H PRN 08/28/21 [History] Budesonide-Formot 160-4.5 Mcg [Symbicort 160-4.5 Mcg Inhaler] 2 puff INHALATION RT-BID 08/28/21 [History] Ezetimibe [Zetia] 10 mg PO HS 08/28/21 [History] Fluticasone Nasal Jackson [Flonase Nasal Jackson] 2 spray EA NOSTRIL BID 08/28/21 [History] Fenofibrate Nanocrystallized [Fenofibrate] 145 mg PO HS 12/19/22 [History] Aspirin 81 mg PO DAILY #30 tab 12/21/22 [Rx] HYDROcodone/APAP 5-325MG [Brockway 5-325] 1 each PO Q6HR PRN #6 tab 12/21/22 [Rx] Losartan [Cozaar] 25 mg PO DAILY #30 tab 12/21/22 [Rx] Metoprolol Tartrate [Lopressor] 25 mg PO TID #90 tab 12/21/22 [Rx] Nicotine 21Mg/24Hr Patch [Habitrol] 1 patch TRANSDERM DAILY patch 12/21/22 [Rx] Nicotine Gum (Polacrilex) [Nicorette] 2 mg BUCCAL Q2HR PRN pieceofgum 12/21/22 [Rx] Nitroglycerin Sl Tabs [Nitrostat] 0.4 mg SUBLINGUAL Q5M PRN #20 tab 12/21/22 [Rx] Ticagrelor [Brilinta] 90 mg PO BID 30 Days #60 tab 12/21/22 [Rx] Follow up Appointment(s)/Referral(s): Kd Eagle MD [Primary Care Provider] - 1-2 days Giuseppe Medrano MD [STAFF PHYSICIAN] - 01/04/23 9:30 am (New primary doctor apt. Please notify Dr. Medrano of your recent hospital stay. ) Tj Warren DO [STAFF PHYSICIAN] - 1 Week (Office did not answer, please call to schedule hospital follow up apt. ) Ambulatory/Diagnostic Orders: Complete Blood Count w/diff [LAB.AMB] Time Frame: 3 Days, Location: None Selected Patient Instructions/Handouts: *Surgery [facility] - After Heart Catheterization - Curriculum Manager Instructions, Angina (DC) Activity/Diet/Wound Care/Special Instructions: Patient okay for discharge later today after echo resulted Activity Limited until follow-up Follow-up with primary care provider on discharge Continue taking medications as prescribed Follow-up cardiology in one week Continue heart healthy diet Strongly recommend avoiding tobacco use and exposure Repeat labs in 2-3 days Discharge Disposition: HOME SELF-CARE
== END 2022-12-21 15:52 | disposition home or self-care (01) | DRG 321 ==
LOC: EC 13:39 → 6NMEDSUR 15:55 → 3SCARD 20:32 → OBSVTOIN 12-20 10:49
PROVIDERS: ADMIT Hospitalist; ATTEND Hospitalist
PROC: B240ZZ3 Ultrasonography of Single Coronary Artery, Intravascular (ICD-10-PCS; principal; 2022-12-19 18:43)
PROC: 027034Z Dilation of Coronary Artery, One Artery with Drug-eluting Intraluminal Device, Percutaneous Approach (ICD-10-PCS; principal; 2022-12-19 18:43)
PROC: 4A023N7 Measurement of Cardiac Sampling and Pressure, Left Heart, Percutaneous Approach (ICD-10-PCS; principal; 2022-12-19 18:43)
PROC: B2111ZZ Fluoroscopy of Multiple Coronary Arteries using Low Osmolar Contrast (ICD-10-PCS; principal; 2022-12-19 18:43)
DX: T82.855A Stenosis of coronary artery stent, initial encounter (principal); I21.A9 Other myocardial infarction type; I25.10 Atherosclerotic heart disease of native coronary artery without angina pectoris; I10 Essential (primary) hypertension; E78.5 Hyperlipidemia, unspecified; J44.9 Chronic obstructive pulmonary disease, unspecified; K76.0 Fatty (change of) liver, not elsewhere classified; M19.90 Unspecified osteoarthritis, unspecified site; E66.9 Obesity, unspecified; Z68.29 Body mass index [BMI] 29.0-29.9, adult; F17.210 Nicotine dependence, cigarettes, uncomplicated; Z88.5 Allergy status to narcotic agent; Z95.5 Presence of coronary angioplasty implant and graft; Z71.3 Dietary counseling and surveillance; Z79.899 Other long term (current) drug therapy; I25.2 Old myocardial infarction; Z86.14 Personal history of Methicillin resistant Staphylococcus aureus infection; Z79.51 Long term (current) use of inhaled steroids; Z71.6 Tobacco abuse counseling
CPT/HCPCS: 36415; 71046; 76937; 80048; 80053; 80061; 82272; 82565; 83721; 83735; 84484; 85025; 85379; 85610; 85730; 92978; 93005; 93306; 93458; 94640; 94760; 96361; 96374; 96375; 99291

== ENCOUNTER → 2023-01-10 | Outpatient (CLI) | payer MEDICARE, OTHER ==
--- NOTE | 2023-01-10 09:17 | CTL ---
EXAMINATION TYPE: CT Low Dose Lung DATE OF EXAM: 01/10/2023 8:58 AM CLINICAL INDICATION:Male, 57 years old with history of Z87.891 personal hx of tobacco use; Personal h istory of tobacco use , history of tobacco use. COMPARISON: None. TECHNIQUE: Multiple axial non-contrast scans were obtained from approximately the lung apices through the upper abdomen. Coronal and sagittal reformatted images were obtained. Low dose technique was uti lized. CT DLP: 148.30 mGycm, Automated exposure control for dose reduction was used. CT Contrast: Contrast used: None Oral contrast used: None FINDINGS: ======== Lack of intravenous contrast and low dose technique limits the evaluation of the vascular and soft ti ssue structures. LUNGS: No evidence of pulmonary fibrosis. No evidence of focal consolidation, pneumothorax or pleural effusion. Mild paraseptal and centrilobular emphysema changes. Nodules: RUL: Groundglass opacity measuring 10 mm series 4 image 87. Medial pulmonary nodule near the medi astinum subpleural region measuring 4 mm image 134 RML: None. RLL: None. GENEVIEVE: 5 mm image 239 LLL: None. AIRWAY: Patent and unremarkable. HEART: Size within normal limits. Stent grafts noted. MEDIASTINUM: No gross evidence of adenopathy. VASCULATURE: No aortic aneurysm. MUSCULOSKELETAL: No acute osseous abnormalities SOFT TISSUES/LYMPH NODES: Unremarkable. LOWER NECK: No significant findings. UPPER ABDOMEN: No significant findings. IMPRESSION: 1. Right upper lung groundglass pulmonary nodule measuring 10 mm which could represent sequela prior infection versus minimally invasive bronchoalveolar carcinoma. Continued surveillance of this lesion is recommended. 2. Other scattered nodules up to [address] LUNG RAD AND CT CHEST RECOMMENDATION: Lung-Rad 2 Benign Appearance or Behavior: Continue annual sc reening with LDCT in 12 months. S Modifier (other clinically significant findings): None Recommend smoking cessation (if current smoker), or continuation of smoking cessation (if prior smoke r). Annual screening for lung cancer with low-dose computed tomography is recommended in adults ages 55 to 77 years who have a 30 pack-year smoking history and currently smoke or have quit within the pa st 15 years. Screening should be discontinued once a person has not smoked for 15 years or develops a health problem that substantially limits life expectancy or the ability or willingness to have curat brayden lung surgery. Lung rads 2021 [email or web address]
== END | disposition home or self-care (01) ==
LOC: RADCTMAIN 08:17
PROVIDERS: ATTEND Family Medicine
DX: Z12.2 Encounter for screening for malignant neoplasm of respiratory organs (principal); R91.8 Other nonspecific abnormal finding of lung field; F17.210 Nicotine dependence, cigarettes, uncomplicated
CPT/HCPCS: 71271

== ENCOUNTER → 2023-02-28 | Outpatient (CLI) | payer MEDICARE, OTHER ==
--- NOTE | 2023-02-28 10:30 | US ---
EXAMINATION TYPE: US liver DATE OF EXAM: 02/28/2023 COMPARISON: NONE CLINICAL INDICATION: Male, 57 years old with history of R79.89 ELEVATED LFT'S; Large habitus, smoker, vomiting recent due to nasal drainage TECHNIQUE: Multiple sonographic images of the right upper quadrant are obtained. FINDINGS: EXAM MEASUREMENTS: Liver Length: 20.8 cm Gallbladder Wall: 0.2 cm CBD: 0.5 cm Right Kidney: 12.2 x 5.7 x 6.5 cm FURNACE CHARGER NOTES:large habitus limits exam Pancreas: portions seen appear wnl Liver: enlarged and difficult to penetrate Gallbladder: wnl Evidence for sonographic Nance's sign: no CBD: wnl Right Kidney: wnl IMPRESSION: Hepatomegaly with mild to moderate fatty infiltration. No discrete masses.
== END | disposition home or self-care (01) ==
LOC: RADUSWWP 08:39
PROVIDERS: ATTEND Family Medicine
DX: K76.0 Fatty (change of) liver, not elsewhere classified (principal); R16.0 Hepatomegaly, not elsewhere classified; R79.89 Other specified abnormal findings of blood chemistry; F17.200 Nicotine dependence, unspecified, uncomplicated
CPT/HCPCS: 76705

== ENCOUNTER 2023-06-29 02:55 | Emergency (ER) | payer MEDICARE, OTHER ==
[2023-06-29 03:12] VITALS: TEMP 97.4
--- NOTE | 2023-06-29 03:13 | ED ---
Abdominal Pain HPI - General Source: patient, RN notes reviewed, old records reviewed Mode of arrival: ambulatory Limitations: no limitations - History of Present Illness MD Complaint: abdominal pain, flank pain, other (Left-sided anterior chest wall pain) Radiation: LUQ Migration to: LUQ Severity: moderate Severity scale (1-10): 6 Quality: fullness, sharp Consistency: intermittent Improves With: nothing Worsens With: nothing Associated Symptoms: nausea Treatments Prior to Arrival: other <Nader Zayas - Last Filed: 06/29/23 03:51> <Bryon Martin - Last Filed: 06/29/23 08:11> - General Chief Complaint: Abdominal Pain Stated Complaint: abd pain MARIO ALBERTO Time Seen by Provider: 06/29/23 03:11 - History of Present Illness Initial Comments: This is a 57-year-old male to the ER for evaluation of left-sided abdominal pain left-sided flank pain severe anterior chest pain that has been episodic. Patient has persistent pain here in the emergency department worse when he coughs worse when he takes a deep breath worse when he touches his left side of his abdomen no rib pain no rib tenderness no chest pain (Nader Zayas) - Related Data Home Medications Medication Instructions Recorded Confirmed Albuterol Sulfate [Proair Hfa] 1 - 2 puff INHALATION RT-Q6H PRN 08/28/21 12/19/22 Budesonide-Formot 160-4.5 Mcg 2 puff INHALATION RT-BID 08/28/21 12/19/22 [Symbicort 160-4.5 Mcg Inhaler] Ezetimibe [Zetia] 10 mg PO HS 08/28/21 12/19/22 Fluticasone Nasal [place] [Flonase 2 spray EA NOSTRIL BID 08/28/21 12/19/22 Nasal [place]] Fenofibrate Nanocrystallized 145 mg PO HS 12/19/22 12/19/22 [Fenofibrate] Previous Rx's Medication Instructions Recorded Atorvastatin [Lipitor] 80 mg PO HS #30 tab 06/03/15 Aspirin 81 mg PO DAILY #30 tab 12/21/22 HYDROcodone/APAP 5-325MG [[place] 1 each PO Q6HR PRN #6 tab 12/21/22 5-325] Losartan [Cozaar] 25 mg PO DAILY #30 tab 12/21/22 Metoprolol Tartrate [Lopressor] 25 mg PO TID #90 tab 12/21/22 Nicotine 21Mg/24Hr Patch [Habitrol] 1 patch TRANSDERM DAILY patch 12/21/22 Nicotine Gum (Polacrilex) 2 mg BUCCAL Q2HR PRN pieceofgum 12/21/22 [Nicorette] Nitroglycerin Sl Tabs [Nitrostat] 0.4 mg SUBLINGUAL Q5M PRN #20 tab 12/21/22 Ticagrelor [Brilinta] 90 mg PO BID 30 Days #60 tab 12/21/22 Allergies Allergy/AdvReac Type Severity Reaction Status Date / Time morphine Allergy Nausea & Verified 06/29/23 03:00 Vomiting Review of Systems ROS Other: All systems not noted in ROS Statement are negative. <Nader Zayas - Last Filed: 06/29/23 03:51> ROS Other: All systems not noted in ROS Statement are negative. <Bryon Martin - Last Filed: 06/29/23 08:11> ROS Statement: Those systems with pertinent positive or pertinent negative responses have been documented in the HPI. Past Medical History Past Medical History: COPD, Hyperlipidemia, Hypertension, Myocardial Infarction (AR), Osteoarthritis (OA) Additional Past Medical History / Comment(s): " ENLARGED LIVER-FATTY LIVER " Last Myocardial Infarction Date:: 2013 History of Any Multi-Drug Resistant Organisms: MRSA Date of last positivie culture/infection: 2019 MDRO Source:: Arms, legs, and head Past Surgical History: Heart Catheterization With Stent, Orthopedic Surgery Additional Past Surgical History / Comment(s): ankles, left elbow, right leg, nose, heart cath w/ stent Past Anesthesia/Blood Transfusion Reactions: No Reported Reaction Date of Last Stent Placement:: 12/19/22 Past Psychological History: No Psychological Hx Reported Smoking Status: Current every day smoker, Heavy tobacco smoker Past Alcohol Use History: Occasional Past Drug Use History: Marijuana - Past Family History Mother Family Medical History: No Reported History <Nader Zayas - Last Filed: 06/29/23 03:51> General Exam Limitations: no limitations General appearance: alert, in no apparent distress Head exam: Present: atraumatic, normocephalic, normal inspection Eye exam: Present: normal appearance, PERRL, EOMI. Absent: scleral icterus, conjunctival injection, periorbital swelling ENT exam: Present: normal exam, mucous membranes moist Neck exam: Present: normal inspection. Absent: tenderness, meningismus, lymphadenopathy Respiratory exam: Present: normal lung sounds bilaterally. Absent: respiratory distress, wheezes, rales, rhonchi, stridor Cardiovascular Exam: Present: regular rate, normal rhythm, normal heart sounds. Absent: systolic murmur, diastolic murmur, rubs, gallop, clicks GI/Abdominal exam: Present: soft, normal bowel sounds. Absent: distended, tenderness, guarding, rebound, rigid Extremities exam: Present: normal inspection, full ROM, normal capillary refill. Absent: tenderness, pedal edema, joint swelling, calf tenderness Back exam: Present: normal inspection Neurological exam: Present: alert, oriented X3, CN II-XII intact Psychiatric exam: Present: normal affect, normal mood Skin exam: Present: warm, dry, intact, normal color. Absent: rash <Nader Zayas - Last Filed: 06/29/23 03:51> Course <Nader Zayas - Last Filed: 06/29/23 03:51> Vital Signs 06/29/23 06/29/23 06/29/23 02:58 04:00 05:10 Temperature 97.4 F L Pulse Rate 99 92 81 Respiratory 18 19 16 Rate Blood Pressure 161/91 158/89 138/87 O2 Sat by Pulse 97 92 L 96 Oximetry 06/29/23 06:30 Temperature Pulse Rate 75 Respiratory 18 Rate Blood Pressure 148/89 O2 Sat by Pulse 94 L Oximetry - Reevaluation(s) Reevaluation #1: 06/29/23 03:52 Medical records reviewed (Nader Zayas) Reevaluation #2: 06/29/23 03:52 Patient's pain is improved (Nader Zayas) Reevaluation #4: Was pt. sent in by a medical professional or institution (, PA, JOINERY MACHINIST, urgent care, hospital, or retirement...) When possible be specific @ -no Did you speak to anyone other than the patient for history (EMS, parent, family, police, friend...)? What history was obtained from this source @ -no Did you review nursing and triage notes (agree or disagree)? Why? @ -agree Are old charts reviewed (outside hosp., previous admission, EMS record, old EKG, old radiological studies, urgent care reports/EKG's, retirement records)? Report findings @ -yes Differential Diagnosis (chest pain, altered mental status, abdominal pain women, abdominal pain men, vaginal bleeding, weakness, fever, dyspnea, syncope, headache, dizziness, GI bleed, back pain, seizure, CVA, palpatations, mental health, musculoskeletal)? @ -prior EKG interpreted by me (3pts min.). @ -yes X-rays interpreted by me (1pt min.). @ -yes negative for acute disease CT interpreted by me (1pt min.). @ -no U/S interpreted by me (1pt. min.). @ -no What testing was considered but not performed or refused? (CT, X-rays, U/S, labs)? Why? @ -none What meds were considered but not given or refused? Why? @ -none Did you discuss the management of the patient with other professionals (professionals i.e. , PA, JOINERY MACHINIST, lab, RT, psych nurse, clinical social worker, hygiene teacher, teacher, operations officer afloat, catalytic case operator)? Give summary @ -no Was smoking cessation discussed for >3mins.? @ -no Was critical care preformed (if so, how long)? @ -no Were there social determinants of health that impacted care today? How? (Homelessness, low income, unemployed, alcoholism, drug addiction, transportation, low edu. Level, literacy, decrease access to med. care, fpc, rehab)? @ -none Was there de-escalation of care discussed even if they declined (Discuss DNR or withdrawal of care, Hospice)? DNR status @ -no What co-morbidities impacted this encounter? (DM, HTN, Smoking, COPD, CAD, Cancer, CVA, ARF, Chemo, Hep., AIDS, mental health diagnosis, sleep apnea, morbid obesity)? @ -none Was patient admitted / discharged? Hospital course, mention meds given and route, prescriptions, significant lab abnormalities, going to OR and other pertinent info. @ - Undiagnosed new problem with uncertain prognosis? @ -no Drug Therapy requiring intensive monitoring for toxicity (Heparin, Nitro, Insulin, Cardizem)? @ -no Were any procedures done? @ -no Diagnosis/symptom? @ - Acute, or Chronic, or Acute on Chronic? @ -Acute Uncomplicated (without systemic symptoms) or Complicated (systemic symptoms)? @ -Complicated Side effects of treatment? @ -no Exacerbation, Progression, or Severe Exacerbation? @ -exacerbation Poses a threat to life or bodily function? How? (Chest pain, USA, AR, pneumonia, PE, COPD, DKA, ARF, appy, cholecystitis, CVA, Diverticulitis, Homicidal, Suicidal, threat to staff... and all critical care pts) @ -yes (Nader Zayas) Reevaluation #5: Differential Chest Pain: Stable Angina, Unstable Angina, STEMI, NSTEMI Aortic Dissection, Pneumothorax, Musculoskeletal, Esophageal Spasm GERD, Cholecystitis, Pancreatitis, Zoster, this is not meant to be an all-inclusive list. Differential Abdominal Pain Men: Appendicitis, cholecystitis, diverticulosis, ischemic bowel, pancreatitis, hepatitis, UTI, gastroenteritis, AAA, incarcerated hernia, bowel obstruction, constipation, inflammatory bowel, hepatitis, peptic ulcer disease, splenic infarction, perforated viscus, testicular torsion, this is not meant to be an all-inclusive list (Nader Zayas) Medical Decision Making - EKG Data -: EKG Interpreted by Me (EKG is sinus 100 AL 181 QRS 98 QTc 403) <Nader Zayas - Last Filed: 06/29/23 03:51> - Lab Data Result diagrams: 06/29/23 03:45 06/29/23 03:45 <Bryon Martin - Last Filed: 06/29/23 08:11> - Medical Decision Making Patient care signed out to me by previous shift physician, Dr. Chapman,. Briefly, patient is a 57-year-old male presents to the emergency department with abdominal pain. Plan at signout was to follow-up with pending CT imaging. Labs reviewed found to be unremarkable. I reviewed CT radiology read results at approximately 8:[address] showed no acute intra-abdominal processes. Pthere does appear to be hepatomegaly consistent with hepatic steatosis. Patient also has a left upper quadrant lipoma. Patient notified of his lab results and imaging results. He was told that he has a lipoma he should follow-up with general surgery. Patient states that his pain is worse whenever he coughs or takes a deep breath. Patient has reproducible left upper quadrant abdominal pain making ACS or pulmonary embolism clinically unlikely. Patient would prefer to be discharged. Patient given referral for general surgery. (Bryon Martin) - Lab Data Lab Results 06/29/23 06/29/23 06/29/23 Range/Units 03:45 03:45 04:24 WBC 11.7 H (3.8-10.6) k/uL RBC 4.72 (4.30-5.90) m/uL Hgb 14.0 (13.0-17.5) gm/dL Hct 41.8 (39.0-53.0) % MCV 88.7 (80.0-100.0) fL MCH 29.7 (25.0-35.0) pg MCHC 33.5 (31.0-37.0) g/dL RDW 13.6 (11.5-15.5) % Plt Count 333 (150-450) k/uL MPV 7.4 Neutrophils % 54 % Lymphocytes % 36 % Monocytes % 6 % Eosinophils % 2 % Basophils % 1 % Neutrophils # 6.3 (1.3-7.7) k/uL Lymphocytes # 4.2 (1.0-4.8) k/uL Monocytes # 0.7 (0-1.0) k/uL Eosinophils # 0.2 (0-0.7) k/uL Basophils # 0.1 (0-0.2) k/uL D-Dimer 0.21 (<0.60) mg/L FEU Sodium 138 (137-145) mmol/L Potassium 4.2 (3.5-5.1) mmol/L Chloride 104 (98-107) mmol/L Carbon Dioxide 24 (22-30) mmol/L Anion Gap 10 mmol/L BUN 16 (9-20) mg/dL Creatinine 0.93 (0.66-1.25) mg/dL Est GFR (CKD-EPI)AfAm >90 (>60 ml/min/1.73 sqM) Est GFR (CKD-EPI)NonAf 90 (>60 ml/min/1.73 sqM) Glucose 186 H (74-99) mg/dL Calcium 10.2 (8.4-10.2) mg/dL Total Bilirubin 0.5 (0.2-1.3) mg/dL AST 55 (17-59) U/L ALT 113 H (4-49) U/L Alkaline Phosphatase 117 (38-126) U/L Troponin I (0.000-0.034) ng/mL Total Protein 7.4 (6.3-8.2) g/dL Albumin 4.4 (3.5-5.0) g/dL Amylase 47 (30-110) U/L Lipase 170 (23-300) U/L 06/29/23 Range/Units 04:40 WBC (3.8-10.6) k/uL RBC (4.30-5.90) m/uL Hgb (13.0-17.5) gm/dL Hct (39.0-53.0) % MCV (80.0-100.0) fL MCH (25.0-35.0) pg MCHC (31.0-37.0) g/dL RDW (11.5-15.5) % Plt Count (150-450) k/uL MPV Neutrophils % % Lymphocytes % % Monocytes % % Eosinophils % % Basophils % % Neutrophils # (1.3-7.7) k/uL Lymphocytes # (1.0-4.8) k/uL Monocytes # (0-1.0) k/uL Eosinophils # (0-0.7) k/uL Basophils # (0-0.2) k/uL D-Dimer (<0.60) mg/L FEU Sodium (137-145) mmol/L Potassium (3.5-5.1) mmol/L Chloride (98-107) mmol/L Carbon Dioxide (22-30) mmol/L Anion Gap mmol/L BUN (9-20) mg/dL Creatinine (0.66-1.25) mg/dL Est GFR (CKD-EPI)AfAm (>60 ml/min/1.73 sqM) Est GFR (CKD-EPI)NonAf (>60 ml/min/1.73 sqM) Glucose (74-99) mg/dL Calcium (8.4-10.2) mg/dL Total Bilirubin (0.2-1.3) mg/dL AST (17-59) U/L ALT (4-49) U/L Alkaline Phosphatase (38-126) U/L Troponin I <0.012 (0.000-0.034) ng/mL Total Protein (6.3-8.2) g/dL Albumin (3.5-5.0) g/dL Amylase (30-110) U/L Lipase (23-300) U/L Disposition <Nader Zayas - Last Filed: 06/29/23 03:51> Is patient prescribed a controlled substance at d/c from ED?: No Time of Disposition: 08:10 <Bryon Martin - Last Filed: 06/29/23 08:11> Clinical Impression: Lipoma Disposition: HOME SELF-CARE Condition: Fair Referrals: [facility] [Primary Care Provider] - 1-2 days Chi King MD [STAFF PHYSICIAN] - 1-2 days
[2023-06-29 03:55] LABS: Basophils # (A) 0.1 k/uL (0-0.2); Basophils % (A) 1 %; Eosinophils # (A) 0.2 k/uL (0-0.7); Eosinophils % (A) 2 %; HCT 41.8 % (39.0-53.0); Lymphocytes # (A) 4.2 k/uL (1.0-4.8); Lymphocytes % (A) 36 %; MCH 29.7 pg (25.0-35.0); MCHC 33.5 g/dL (31.0-37.0); MCV 88.7 fL (80.0-100.0); Mean Platelet Volume 7.4; Monocytes # (A) 0.7 k/uL (0-1.0); Monocytes % (A) 6 %; Neutrophils # (A) 6.3 k/uL (1.3-7.7); Neutrophils % (A) 54 %; Platelet Count 333 k/uL (150-450); RBC 4.72 m/uL (4.30-5.90); RDW 13.6 % (11.5-15.5); WBC 11.7 k/uL (3.8-10.6)
[2023-06-29 04:15] LABS: ALT 113 U/L (4-49); AST 55 U/L (17-59); African American GFR (CKD) >90 (>60 ml/min/1.73 sqM); Albumin 4.4 g/dL (3.5-5.0); Alkaline Phosphatase 117 U/L (38-126); Amylase 47 U/L (30-110); Anion Gap 10 mmol/L; Blood Urea Nitrogen 16 mg/dL (9-20); Calcium 10.2 mg/dL (8.4-10.2); Carbon Dioxide 24 mmol/L (22-30); Chloride 104 mmol/L (98-107); Glucose 186 mg/dL (74-99); Lipase 170 U/L (23-300); Non-African American GFR(CKD) 90 (>60 ml/min/1.73 sqM); Potassium 4.2 mmol/L (3.5-5.1); Sodium 138 mmol/L (137-145); Total Bilirubin 0.5 mg/dL (0.2-1.3); Total Protein 7.4 g/dL (6.3-8.2)
[2023-06-29 06:43] VITALS: RESP 18
[2023-06-29] MEDS: NICOTINE 14MG/24HR PATCH TRANSDERM STA (06:50)
--- NOTE | 2023-06-29 07:39 | CT ---
EXAMINATION TYPE: CT abdomen pelvis wo con DATE OF EXAM: 06/29/2023 COMPARISON: None HISTORY: 57-year-old male Upper left abdominal pain CT DLP: 1799.7 mGycm. Automated exposure control for dose reduction was used. TECHNIQUE: Contiguous axial scanning of the abdomen and pelvis without IV contrast. Coronal and sagit jagruti reconstructions performed. FINDINGS: The heart is normal size without pericardial effusion. Some strandy atelectasis/scar inferior lingula . Liver enlarged at 21.8 cm with markedly diminished attenuation of the liver parenchyma. Otherwise, noncontrast appearance of the gallbladder, adrenal glands, kidneys, spleen, and pancreas w ithin normal limits. Small 2.4 cm diverticulum of the third portion of the duodenum projecting superiorly. No dilated small bowel, free fluid, or free air. No mesenteric or retroperitoneal lymphadenopathy. Normal appendix. There is mild overall stool burden. No pericolonic inflammatory change. Bladder partially distended. Prostate gland mildly enlarged at 4.6 cm wide. No abnormal fluid collect ion in the pelvis or pelvic lymphadenopathy. Patulous bilateral inguinal canals. Incidental fatty tumor interposed between the layers of the left anterolateral upper abdominal wall m usculature. This measures 7.9 cm wide by 1.8 cm thick by 8.7 cm craniocaudal. No abnormal internal so ft tissue nodularity or stranding. Bones: Facet arthropathy lower lumbar spine. IMPRESSION: 1. Hepatomegaly at 21.8 cm with severe hepatic steatosis. Appropriate clinical management is advised . 2. Incidental left upper quadrant lipoma involving the abdominal wall musculature. This measures 8.7 x 7.9 x 1.8 cm.
[2023-06-29 08:18] VITALS: BP 145/90; PULSE 76
== END 2023-06-29 08:16 | disposition home or self-care (01) ==
LOC: EC 02:55
DX: D17.1 Benign lipomatous neoplasm of skin and subcutaneous tissue of trunk (principal); K76.0 Fatty (change of) liver, not elsewhere classified; R00.0 Tachycardia, unspecified; F17.200 Nicotine dependence, unspecified, uncomplicated; F12.90 Cannabis use, unspecified, uncomplicated; Z88.5 Allergy status to narcotic agent
CPT/HCPCS: 36415; 85379; 80053; 82150; 83690; 84484; 85025; 74176; 99284; S4990

== ENCOUNTER → 2023-07-06 | Outpatient (CLI) | payer MEDICARE, OTHER ==
--- NOTE | 2023-07-06 17:30 | US ---
EXAMINATION TYPE: US gallbladder DATE OF EXAM: 07/06/2023 COMPARISON: CT 06/29/23 CLINICAL INDICATION: Male, 57 years old with history of R10.84 GENERALIZED ABDOMINAL PAIN; TECHNIQUE: Multiple sonographic images of the right upper quadrant are obtained. FINDINGS: EXAM MEASUREMENTS: Liver Length: 21.4 cm Gallbladder Wall: 0.18 cm CBD: unable to delineate/visualize due to large body habitus Right Kidney: 11.1 x 6.0 x 5.1 cm MILITARY PAY CLERK NOTES: Pancreas: Limited visualization Liver: Hepatomegaly; increased attenuation . This appearance limits evaluation for small hepatic mas ses. Gallbladder: Borderline hydropic 10.1 x 4.4 cm Evidence for sonographic Nance's sign: No CBD: Unable to visualize Right Kidney: wnl as visualized IMPRESSION: 1. Hepatomegaly and hepatic steatosis. 2. Borderline hydropic gallbladder without ultrasound evidence for acute cholecystitis. 3. Nonvisualization of the common bile duct due to patient's body habitus.
== END | disposition home or self-care (01) ==
LOC: RADUSWWP 08:56
PROVIDERS: ATTEND Surgery
DX: K76.0 Fatty (change of) liver, not elsewhere classified (principal)
CPT/HCPCS: 76705

== ENCOUNTER → 2023-07-08 | Outpatient (CLI) | payer MEDICARE, OTHER ==
--- NOTE | 2023-07-08 18:18 | NM ---
EXAMINATION TYPE: NM hepatobiliary w CCK DATE OF EXAM: 07/08/2023 COMPARISON: Gallbladder ultrasound 07/06/2023 CLINICAL INDICATION: Male, 57 years old with history of R10.84 GENERALIZED ABDOMINAL PAIN; TECHNIQUE: After the intravenous administration of 5.3 mCi Tc 99m Mebrofenin hepatobiliary scintigrap hy is performed. Immediate images post injection. FINDINGS: There is satisfactory initial accumulation of tracer by the liver. The gallbladder is visualized wit hin 8 minutes. The small bowel activity is noted within 10 minutes. At one hour CCK was administere d, patient was injected with 2.72 mcg of Kinevac, and gallbladder ejection fraction is calculated at 16 %, diminished. IMPRESSION: 1. Abnormally diminished gallbladder ejection fraction (normal> 35%). Findings can be seen in the set ting of chronic cholecystitis or biliary dyskinesia. 2. We note severe hepatic steatosis on the patient's recent ultrasound. Appropriate clinical manageme nt is advised.
== END | disposition home or self-care (01) ==
LOC: RADNMMAIN 11:30
PROVIDERS: ATTEND Surgery
DX: K76.0 Fatty (change of) liver, not elsewhere classified (principal); K82.8 Other specified diseases of gallbladder
CPT/HCPCS: 78227; A9537; J2805

== ENCOUNTER 2023-08-08 05:46 | Day surgery (SDC) | payer MEDICARE, OTHER ==
[~2023-08-08 05:46] MED LIST changes: -LACTATED RINGERS 1,000 ML IV SCH; +SCOPOLAMINE 1 MG/72 HR PATCH TRANSDERM ONE
[2023-08-08 06:51] LABS: HCT 40.3 % (39.0-53.0); HGB 13.2 gm/dL (13.0-17.5); MCH 29.5 pg (25.0-35.0); MCHC 32.8 g/dL (31.0-37.0); MCV 89.9 fL (80.0-100.0); Mean Platelet Volume 7.3; Platelet Count 324 k/uL (150-450); RBC 4.48 m/uL (4.30-5.90); RDW 13.8 % (11.5-15.5); WBC 9.8 k/uL (3.8-10.6)
[2023-08-08] MEDS: ONDANSETRON 4 MG/2 ML VIAL IVP ONE (06:57)
[2023-08-08] MEDS: LACTATED RINGERS 1,000 ML IV SCH (06:57)
[2023-08-08] MEDS: DEXAMETHASONE SOD PHOSPHATE 4 MG/ML 1 ML VIAL IV ONE (06:57)
[2023-08-08] MEDS ORDERED: MIDAZOLAM 2 MG/2 ML VIAL IV PRN (07:00)
[2023-08-08] MEDS: IV FLUID CONTINUATION 1,000 ML IV ONE (07:03)
[2023-08-08] MEDS: LIDOCAINE 1%-EPI 1:100,000 20 ML VIAL SQ ONE ×2 (07:18→07:59)
[2023-08-08] MEDS: ACETAMINOPHEN TAB 500 MG TAB PO PRN (07:36)
[2023-08-08] MEDS ORDERED: PROPOFOL 10 MG/ML 20 ML VIAL IV ONE (07:36)
[2023-08-08] MEDS ORDERED: fentaNYL (PF) 50 MCG/ML 2 ML AMP ONE (07:36)
[2023-08-08] MEDS ORDERED: KETOROLAC 15 MG/ML 1 ML VIAL ONE (07:36)
[2023-08-08] MEDS ORDERED: HYDROmorphone (PF) 1 MG/ML ONE (07:36)
[2023-08-08] MEDS ORDERED: ROCURONIUM 10 MG/ML (5 ML VIAL) IV ONE (07:36)
[2023-08-08] MEDS ORDERED: SUCCINYLCHOLINE CHLORIDE 200 MG/10 ML VIAL IV ONE (07:36)
[2023-08-08] MEDS ORDERED: MIDAZOLAM 2 MG/2 ML VIAL ONE (07:36)
[2023-08-08] MEDS ORDERED: LIDOCAINE 1% INJ 10MG/ML (20 ML MDV) ONE (07:36)
[2023-08-08] MEDS: HEPARIN SODIUM,PORCINE 5,000 UNIT/ML 1 ML VIAL SQ STA (07:37)
[2023-08-08] MEDS: ceFAZolin 3 GM in SODIUM CHLORIDE 0.9% 100 ML IVPB PRN (07:40)
--- NOTE | 2023-08-08 08:37 | P.OP ---
Date of Procedure: 08/08/23 Preoperative Diagnosis: cholecystitis Postoperative Diagnosis: cholecystitis Procedure(s) Performed: laparoscopic cholecystectomy Anesthesia: MADELEINE Surgeon: Chi King Estimated Blood Loss (ml): 5 Pathology: other (gallbladder) Condition: stable Disposition: PACU Description of Procedure: The patient was placed on the operating table. The patient received a general endotracheal tube anesthesia. The patients abdomen was prepped and draped in the usual sterile fashion. Through an infraumbilical stab incision, the fascia of the anterior abdominal wall was grasped with a pair of Kochers and then the Veress needle was placed in the peritoneal cavity. Position of the Veress needle was confirmed with positive drop test. The abdomen was then insufflated. After adequate insufflation, the 10 mm trocar was placed in the peritoneal cavity. Following this the laparoscope was placed in the peritoneal cavity. The patient was placed in the head-up, right side up position and then a 5 mm trocar was placed in the right lateral and right subcostal position under direct visualization. A 8 mm trocar was placed in the epigastric position. The gallbladder was grasped in the fundus and infundibulum. Traction on the gallbladder was placed in the lateral and the cephalad positions. The triangle of Calot was visualized.. The cystic duct was bluntly dissected until the union of the cystic duct and common bile duct was seen. A critical view of safety was achieved. The cystic duct was then divided and sealed with the Harmonic scissors. A PDS Endoloop was then placed throughout the cystic duct stump. The cystic artery divided and sealed with the Harmonic scissors. The gallbladder was then removed from the liver bed using Harmonic scissors. The gallbladder was then extracted through the epigastric port site. Operative field was checked for any bleeding spots and Harmonic scissors was used to coagulate the liver bed. The abdomen was irrigated. The trocars were removed. The skin was closed using interrupted 3-0 Vicryl suture. Dermabond dressing were applied. The patient tolerated the procedure well.
[2023-08-08] MEDS: fentaNYL (PF) 50 MCG/ML 2 ML AMP IV PRN (08:38)
[2023-08-08 08:46] VITALS: TEMP 96.9
[2023-08-08] MEDS: HYDROcodone/APAP 10-325MG 1 EACH TAB PO ONE (09:24)
[2023-08-08 09:54] VITALS: BP 110/70; PULSE 71; RESP 18
== END 2023-08-08 10:10 | disposition home or self-care (01) ==
LOC: OR 05:46
PROVIDERS: ATTEND Surgery
DX: K81.2 Acute cholecystitis with chronic cholecystitis (principal); I25.2 Old myocardial infarction; I10 Essential (primary) hypertension; E78.5 Hyperlipidemia, unspecified; J45.909 Unspecified asthma, uncomplicated; K21.9 Gastro-esophageal reflux disease without esophagitis; R16.0 Hepatomegaly, not elsewhere classified; F17.210 Nicotine dependence, cigarettes, uncomplicated; Z79.51 Long term (current) use of inhaled steroids; Z79.899 Other long term (current) drug therapy; Z91.040 Latex allergy status; Z88.5 Allergy status to narcotic agent; Z95.5 Presence of coronary angioplasty implant and graft
CPT/HCPCS: 85027; 47562; J2250; J0330; J1644; J1100; J0690; J2405; J2001; J3010; J1170; J1885; J2704; 88304

== ENCOUNTER → 2024-08-15 | Outpatient (CLI) | payer MEDICARE, OTHER ==
[2024-08-15 15:09] LABS: Basophils # (A) 0.07 X 10*3/uL (0.00-0.10); Basophils % (A) 0.6 %; Eosinophils # (A) 0.19 X 10*3/uL (0.04-0.35); Eosinophils % (A) 1.6 %; HCT 41.5 % (39.6-50.0); HGB 13.8 g/dL (13.0-17.0); Lymphocytes % (A) 31.9 %; MCH 28.4 pg (27.0-32.0); MCHC 33.3 g/dL (32.0-37.0); MCV 85.4 FL (80.0-97.0); Mean Platelet Volume 9.9 FL (9.5-12.2); Monocytes % (A) 6.9 %; NRBC Per 100 WBC 0 X 10*3/uL (0.00-0.01); Neutrophils # (A) 6.76 X 10*3/uL (1.80-7.70); Neutrophils % (A) 58.2 %; Platelet Count 363 X 10*3/uL (140-440); RBC 4.86 X 10*6/uL (4.40-5.60); RDW 13.5 % (11.5-14.5); WBC 11.61 X 10*3/uL (4.50-10.00)
[2024-08-15 20:13] LABS: ALT 51 U/L (10-49); AST 28 U/L (14-35); Albumin 4.3 g/dL (3.8-4.9); Albumin/Globulin Ratio 1.43 Ratio (1.60-3.17); Alkaline Phosphatase 168 U/L (41-126); BUN/Creat Ratio 17.43 Ratio (12.00-20.00); Blood Urea Nitrogen 12.2 mg/dL (9.0-27.0); Calcium 10.4 mg/dL (8.7-10.3); Carbon Dioxide 22.9 mmol/L (21.6-31.8); Chloride 96 mmol/L (96-109); Glucose 333 mg/dL (70-110); Potassium 4.4 mmol/L (3.5-5.5); Sodium 134 mmol/L (135-145); Total Bilirubin 0.5 mg/dL (0.3-1.2); Total Protein 7.3 g/dL (6.2-8.2)
== END | disposition home or self-care (01) ==
LOC: LABWHC1 12:46
PROVIDERS: ATTEND Internal Medicine Gastroenterology
DX: K76.0 Fatty (change of) liver, not elsewhere classified (principal)
CPT/HCPCS: 36415; 80053; 81596; 82103; 85025